=== PATIENT | female | born 1995 | race Hispanic/Latino ===

== ENCOUNTER 2019-03-07 07:17 | Emergency (ER) | payer SELFPAY ==
--- OUTSIDE RECORDS SUMMARY | 2019-03-07 07:18 | XMS REPORT ---
:1995 [facility] Address [address] [place] [address] Dr. Aaron [address] [place] [id number] Care Team Providers Name Role Phone Unavailable Unavailable Unavailable Problems This patient has no known problems. Allergies, Adverse Reactions, Alerts This patient has no known allergies or adverse reactions. Medications This patient has no known medications.
[2019-03-07 08:05] LABS: Absolute Lymphocytes (CBC) 1.6 K/uL (0.7-4.9); Basophils % 0.2 % (0-1.3); Hematocrit 38.1 % (36.0-45.0); Lymphocytes % 10.4 % (15.3-44.8); MPV 9.3 fL (7.6-11.3); RBC Red Blood Cell Count 4.79 M/uL (3.86-4.86)
[2019-03-07 08:09] LABS: BUN Blood Urea Nitrogen 9 mg/dL (7-18); Bicarbonate 25 mmol/L (21-32); Glucose Level 103 mg/dL (74-106); Potassium 3.5 mmol/L (3.5-5.1); Sodium Level 140 mmol/L (136-145)
[2019-03-07 09:17] LABS: Blood Morphology Comment NOT SEEN (NOT SEEN); Platelet Estimate ADEQ
[2019-03-07 09:18] LABS: Urine Blood 3+ (NEG); Urine Glucose NEGATIVE (NEG); Urine Protein 3+ (NEG); Urine Specific Gravity 1.025 (1.005-1.030)
[2019-03-07 09:24] LABS: Urine Bacteria <20 /HPF (<20); Urine Culture Reflex Order NOT NEEDED; Urine RBC TNTC /HPF (NONE SEEN)
--- NOTE | 2019-03-07 10:11 | ER ---
Nurse's Notes [facility] Name: Sugey Morrissey Age: 23 yrs Sex: Female : 1995 Arrival Date: 03/07/2019 Time: 07:25 Bed 18 Private MD: None, None Diagnosis: Spontaneous Presentation: 03/07 07:34 Presenting complaint: Patient states: "I had a miscarriage on Tuesday at 1930, and ss I've just been bleeding a lot since then and having pain. It did get better, but now I'm bleeding a lot again." Patient reports she was seen in another ER after miscarriage, but was told there was not much they could do. Patient is concerned that she is retaining products of conception. Transition of care: patient was not received from another setting of care. Onset of symptoms was March 03, 2019. Risk Assessment: Do you want to hurt yourself or someone else? Patient reports no desire to harm self or others. Initial Sepsis Screen: Does the patient meet any 2 criteria? No. Patient's initial sepsis screen is negative. Does the patient have a suspected source of infection? No. Patient's initial sepsis screen is negative. Note Patient reports she expelled the fetus 4 days ago. Care prior to arrival: None. 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 - Social history:: Smoking status: Patient/guardian denies using tobacco. - Family history:: not pertinent. - Ebola Screening: : Patient denies exposure to infectious person Patient denies travel to an Ebola-affected area in the 21 days before illness onset. - Hospitalizations: : No recent hospitalization is reported. Screenin:53 Abuse screen: Denies threats or abuse. Denies injuries from another. Nutritional jl7 screening: No deficits noted. Tuberculosis screening: No symptoms or risk factors identified. Fall Risk Total Hernandez Fall Scale indicates No Risk (0-24 pts). Assessment: 07:53 General: Appears in no apparent distress. uncomfortable, Behavior is cooperative, jl7 appropriate for age, anxious, crying. Pain: Complains of pain in suprapubic area Pain does not radiate. Pain currently is 8 out of 10 on a pain scale. Quality of pain is described as crampy, Pain began 2-3 days ago. Is intermittent. Neuro: Level of Consciousness is awake, alert, obeys commands. Cardiovascular: Patient's skin is warm and dry. Respiratory: Airway is patent Respiratory effort is even, unlabored, Respiratory pattern is regular, symmetrical. GI: Bowel sounds present X 4 quads. Abd is soft and non tender X 4 quads. : No signs and/or symptoms were reported regarding the genitourinary system. EENT: No signs and/or symptoms were reported regarding the EENT system. Derm: Skin is pink, warm \\T\\ dry. Musculoskeletal: No signs and/or symptoms reported regarding the musculoskeletal system. 09:03 Reassessment: Patient appears in no apparent distress at this time. Patient and/or jl7 family updated on plan of care and expected duration. Pain level reassessed. Patient is alert, oriented x 3, equal unlabored respirations, skin warm/dry/pink. Patient states feeling better. 10:00 Reassessment: Patient appears in no apparent distress at this time. No changes from jl7 previously documented assessment. Patient and/or family updated on plan of care and expected duration. Pain level reassessed. Patient is alert, oriented x 3, equal unlabored respirations, skin warm/dry/pink. Vital Signs: 07:37 BP 134 / 78; Pulse 87; Resp 16; Temp 98.4(TE); Pulse Ox 98% on R/A; Weight 97.52 kg; ss Height 5 ft. 6 in. (167.64 cm); Pain 8/10; 10:03 BP 122 / 65; Pulse 72; Resp 16; Temp 99.5; Pulse Ox 100% on R/A; Pain 0/10; em1 07:37 Body Mass Index 34.70 (97.52 kg, 167.64 cm) ED Course: 07:21 Rex Willams MD is Attending Physician. rn 07:22 Florencia Clark RN is Primary Nurse. jl7 07:25 Patient arrived in ED. mr 07:25 None, None is Private Physician. mr 07:36 Triage completed. ss 07:37 Arm band placed on right wrist. ss 07:53 Patient has correct armband on for positive identification. Placed in gown. Bed in low jl7 position. Call light in reach. Side rails up X 1. Pulse ox on. NIBP on. Warm blanket given. 07:53 Initial lab(s) drawn, by me, sent to lab. Inserted saline lock: 20 gauge in right jl7 antecubital area, using aseptic technique. Blood collected. 10:24 No provider procedures requiring assistance completed. IV discontinued, intact, jl7 bleeding controlled, No redness/swelling at site. Pressure dressing applied. Administered Medications: No medications were administered Outcome: 10:05 Discharge ordered by . rn 10:24 Discharged to home ambulatory, with family. jl7 10:24 Condition: stable 10:24 Discharge instructions given to patient, family, Instructed on discharge instructions, follow up and referral plans. Demonstrated understanding of instructions, follow-up care. 10:24 Patient left the ED. jl7 Signatures: Corina Cerna Roman, MD MD rn Martinez, Eric em1 Nancy Gross RN RN Florencia Cruz RN RN [email or web address]
--- NOTE | 2019-03-07 10:12 | EDPHYS ---
Physician Documentation [facility] Name: Sugey Morrissey Age: 23 yrs Sex: Female : 1995 Arrival Date: 03/07/2019 Time: 07:25 Bed 18 Private MD: None, None ED Physician Rex Willams HPI: 03/07 07:32 This 23 yrs old Female presents to ER via Unassigned with complaints of rn Abdominal Pain. 07:32 The patient presents with abdominal pain in the lower abdomen. Onset: The rn symptoms/episode began/occurred 4 day(s) ago. The symptoms do not radiate. Associated signs and symptoms: Pertinent positives: vaginal bleeding. Modifying factors: The symptoms are alleviated by nothing, the symptoms are aggravated by touching the area. Severity of pain: At its worst the pain was moderate in the emergency department the pain has improved. The patient has not experienced similar symptoms in the past. Reports had miscarriage on Tuesday, states passed fetus, was bleeding, went to other ER, told had miscarriage, bleeding improved, was feeling mild cramps, now bleeding again and worse lower abd cramping. Is on pain meds and abx for UTI.. 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 - Social history:: Smoking status: Patient/guardian denies using tobacco. - Family history:: not pertinent. - Ebola Screening: : Patient denies exposure to infectious person Patient denies travel to an Ebola-affected area in the 21 days before illness onset. - Hospitalizations: : No recent hospitalization is reported. ROS: 07:34 Constitutional: Negative for fever, chills, and weight loss, Cardiovascular: Negative rn for chest pain, palpitations, and edema, Respiratory: Negative for shortness of breath, cough, wheezing, and pleuritic chest pain, Abdomen/GI: + lower abd pain and cramping Back: Negative for injury and pain, : + vaginal bleeding MS/Extremity: Negative for injury and deformity, Skin: Negative for injury, rash, and discoloration, Neuro: Negative for headache, weakness, numbness, tingling, and seizure. Exam: 07:34 Constitutional: This is a well developed, well nourished patient who is awake, alert, rn appears anxious Abdomen/GI: soft, mild suprapubic tenderness, no rebound Neuro: Awake and alert, GCS 15, oriented to person, place, time, and situation. Cranial nerves II-XII grossly intact. Motor strength 5/5 in all extremities. Sensory grossly intact. Cerebellar exam normal. Normal gait. Vital Signs: 07:37 BP 134 / 78; Pulse 87; Resp 16; Temp 98.4(TE); Pulse Ox 98% on R/A; Weight 97.52 kg; ss Height 5 ft. 6 in. (167.64 cm); Pain 8/10; 10:03 BP 122 / 65; Pulse 72; Resp 16; Temp 99.5; Pulse Ox 100% on R/A; Pain 0/10; em1 07:37 Body Mass Index 34.70 (97.52 kg, 167.64 cm) ss MDM: 07:21 Patient medically screened. rn 07:39 ED course: Pt seen in 2016 for trauma, blood type is O+. rn 08:08 ED course: Spoke with patient regarding possible cytotec to help with , patient rn declines, is concerned that may worsen abd pain.. 08:12 ED course: Pt states now pain is gone, states comes in waves. . rn 10:04 Differential diagnosis: Ectopic , spont . Data reviewed: vital signs, rn nurses notes, lab test result(s), radiologic studies, ultrasound, and as a result, I will discharge patient. Counseling: I had a detailed discussion with the patient and/or guardian regarding: the historical points, exam findings, and any diagnostic results supporting the discharge/admit diagnosis, lab results, radiology results, the need for outpatient follow up, to return to the emergency department if symptoms worsen or persist or if there are any questions or concerns that arise at home. Special discussion: I discussed with the patient/guardian in detail that at this point there is no indication for admission to the hospital. It is understood, however, that if the symptoms persist or worsen the patient needs to return immediately for re-evaluation. Based on the history and exam findings, there is no indication for further emergent testing or inpatient evaluation. I discussed with the patient/guardian the need to see the OB Gyne specialist for further evaluation of the symptoms. ED course: Pt pain free, bleeding improved, u/s shows clear adnexa and thin endometrium, no retained products, will dc home with expectant management.. 03/07 07:32 Order name: CBC with Diff; Complete Time: 09:34 rn 03/07 07:32 Order name: Basic Metabolic Panel; Complete Time: 08:37 rn 03/07 07:53 Order name: HCG-Quantitative; Complete Time: 08:37 rn 03/07 08:59 Order name: Urine Microscopic Only; Complete Time: 09:34 rn 03/07 09:03 Order name: Urine Dipstick--Ancillary (enter results); Complete Time: 09:34 bd 03/07 09:03 Order name: Urine --Ancillary (enter results); Complete Time: 09:34 bd 03/07 07:32 Order name: IV Start; Complete Time: 07:51 rn 03/07 08:15 Order name: Pelvis Complete EDMS 03/07 08:59 Order name: Urine Dipstick-Ancillary (obtain specimen); Complete Time: 09:03 rn 03/07 09:23 Order name: Manual Differential; Complete Time: 09:34 EDMS Administered Medications: No medications were administered Disposition: 03/07/19 10:05 Discharged to Home. Impression: Spontaneous . - Condition is Stable. - Discharge Instructions: Miscarriage. - Medication Reconciliation Form, Thank You Letter, Antibiotic Education, Prescription Opioid Use, Family Work Release form. - Follow up: Private Physician; When: As needed; Reason: Recheck today's complaints, Re-evaluation by your physician. - Problem is new. - Symptoms have improved. Signatures: Dispatcher [employer] EDAK Rex Willams MD MD rn Smirch, Shelby, RN RN ss Leal, Jahala, RN RN jl7 Corrections: (The following items were deleted from the chart) 08:15 07:32 OB Limited+US.RAD.BRZ ordered. EDAK EDAK 10:24 10:05 03/07/2019 10:05 Discharged to Home. Impression: Spontaneous . Condition jl7 is Stable. Forms are Medication Reconciliation Form, Thank You Letter, Antibiotic Education, Prescription Opioid Use. Follow up: Private Physician; When: As needed; Reason: Recheck today's complaints, Re-evaluation by your physician. Problem is new. Symptoms have improved. rn
--- NOTE | 2019-03-07 10:52 | RAD REPORT ---
EXAM DESCRIPTION: US - Pelvis Complete - 03/07/2019 9:50 am CLINICAL HISTORY: s/p tuesday, eval for retained products;Abd pain Pelvic pain. COMPARISON: No comparisons FINDINGS: The uterus is normal in size, shape and echotexture. The uterus measures 9.1 x 6.0 x 4.9 c m. The endometrial stripe measures 9 mm, normal. Both ovaries are normal in size, shape and echotexture. The right ovary measures 2.5 x 1.4 x 1.3 cm. The left ovary measures 2.9 x 2.4 x 2.1 cm. No ovarian or parovarian lesions. No adnexal masses. Normal Doppler blood flow was demonstrated to both ovaries. No significant pelvic ascites. IMPRESSION: Unremarkable study.
== END 2019-03-07 10:24 | disposition home or self-care (01) ==
LOC: ER 07:17
DX: O03.9 Complete or unspecified spontaneous abortion without complication (principal)
CPT/HCPCS: 36415; 76856; 80048; 81003; 81015; 81025; 84702; 85025

== ENCOUNTER 2022-02-15 23:08 | Emergency (ER) | payer SELFPAY ==
[2022-02-16 01:33] LABS: Urine Blood Negative (Negative); Urine Glucose Negative (Negative); Urine Protein Negative (Negative); Urine Specific Gravity >=1.030 (1.005-1.030)
[2022-02-16 02:03] LABS: Absolute Lymphocytes (CBC) 3.3 K/uL (0.7-4.9); Hematocrit 37.6 % (36.0-45.0); Lymphocytes % 27.3 % (15.3-44.8); MCV 81.7 fL (80-100)
[2022-02-16 02:05] LABS: Albumin 3.5 g/dL (3.4-5.0); Bilirubin Total 0.4 mg/dL (0.2-1.0); Potassium 3.5 mmol/L (3.5-5.1); Protein, Total 7.1 g/dL (6.4-8.2)
[2022-02-16] MEDS ORDERED: NA CHLORIDE 0.9% 1,000 ML ONE (02:36)
--- NOTE | 2022-02-16 03:34 | EDPHYS ---
Physician Documentation [facility] Name: Sugey Morrissey Age: 26 yrs Sex: Female : 1995 Arrival Date: 02/15/2022 Time: 23:12 Bed 16 Private MD: ED Physician Yusuf Guallpa HPI: 02/16 03:29 This 26 yrs old Female presents to ER via Ambulatory with complaints of [facility] Abdominal Cramping. 03:29 The patient presents to the emergency department with abdominal pain. The estimated [facility] gestational age is 6 weeks. course: care: none. Previous pregnancies: in previous pregnancies patient has had. Associated signs and symptoms: The patient has no apparent associated signs or symptoms. The patient has not experienced similar symptoms in the past. 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 - Social history:: Smoking status: Patient denies any tobacco usage or history of. ROS: 03:30 Constitutional: Negative for fever, chills, and weight loss, Eyes: Negative for injury, eleazar pain, redness, and discharge, ENT: Negative for injury, pain, and discharge, Neck: Negative for injury, pain, and swelling, Cardiovascular: Negative for chest pain, palpitations, and edema, Respiratory: Negative for shortness of breath, cough, wheezing, and pleuritic chest pain, Abdomen/GI: Negative for abdominal pain, nausea, vomiting, diarrhea, and constipation, Back: Negative for injury and pain, : Negative for injury, bleeding, discharge, and swelling, MS/Extremity: Negative for injury and deformity, Skin: Negative for injury, rash, and discoloration, Neuro: Negative for headache, weakness, numbness, tingling, and seizure, Psych: Negative for depression, anxiety, suicide ideation, homicidal ideation, and hallucinations, Allergy/Immunology: Negative for hives, rash, and allergies, Endocrine: Negative for neck swelling, polydipsia, polyuria, polyphagia, and marked weight changes, Hematologic/Lymphatic: Negative for swollen nodes, abnormal bleeding, and unusual bruising. Exam: 03:30 Constitutional: This is a well developed, well nourished patient who is awake, alert, eleazar and in no acute distress. Head/Face: Normocephalic, atraumatic. Eyes: Pupils equal round and reactive to light, extra-ocular motions intact. Lids and lashes normal. Conjunctiva and sclera are non-icteric and not injected. Cornea within normal limits. Periorbital areas with no swelling, redness, or edema. ENT: Nares patent. No nasal discharge, no septal abnormalities noted. Tympanic membranes are normal and external auditory canals are clear. Oropharynx with no redness, swelling, or masses, exudates, or evidence of obstruction, uvula midline. Mucous membranes moist. Neck: Trachea midline, no thyromegaly or masses palpated, and no cervical lymphadenopathy. Supple, full range of motion without nuchal rigidity, or vertebral point tenderness. No Meningismus. Chest/axilla: Normal chest wall appearance and motion. Nontender with no deformity. No lesions are appreciated. Cardiovascular: Regular rate and rhythm with a normal S1 and S2. No gallops, murmurs, or rubs. Normal PMI, no JVD. No pulse deficits. Respiratory: Lungs have equal breath sounds bilaterally, clear to auscultation and percussion. No rales, rhonchi or wheezes noted. No increased work of breathing, no retractions or nasal flaring. Abdomen/GI: Soft, non-tender, with normal bowel sounds. No distension or tympany. No guarding or rebound. No evidence of tenderness throughout. Back: No spinal tenderness. No costovertebral tenderness. Full range of motion. Skin: Warm, dry with normal turgor. Normal color with no rashes, no lesions, and no evidence of cellulitis. MS/ Extremity: Pulses equal, no cyanosis. Neurovascular intact. Full, normal range of motion. Neuro: Awake and alert, GCS 15, oriented to person, place, time, and situation. Cranial nerves II-XII grossly intact. Motor strength 5/5 in all extremities. Sensory grossly intact. Cerebellar exam normal. Normal gait. Psych: Awake, alert, with orientation to person, place and time. Behavior, mood, and affect are within normal limits. Vital Signs: 01:14 BP 123 / 82; Pulse 91; Resp 16; Temp 98.6; Pulse Ox 100% on R/A; Weight 104.78 kg; kd3 Height 5 ft. 5 in. (165.10 cm); Pain 7/10; 02:30 BP 121 / 50; Pulse 75; Resp 16; Pulse Ox 99% on R/A; jb4 04:00 BP 125 / 52; Pulse 76; Resp 18; Pulse Ox 100% on R/A; kd3 01:14 Body Mass Index 38.44 (104.78 kg, 165.10 cm) kd3 MDM: 01:59 Patient medically screened. eleazra 03:31 Data reviewed: vital signs, nurses notes, lab test result(s), radiologic studies, eleazar ultrasound. 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 02/16 01:21 Order name: CBC with Diff; Complete Time: 03:13 kd3 02/16 01:21 Order name: CMP; Complete Time: 03:13 kd3 02/16 01:21 Order name: Lipase; Complete Time: 03:13 kd3 02/16 01:34 Order name: Urine Dipstick-Ancillary; Complete Time: 01:57 EDMS 02/16 01:59 Order name: Abo/rh Typing; Complete Time: 03:13 eleazar 02/16 01:21 Order name: IV Saline Lock; Complete Time: 01:43 kd3 02/16 01:21 Order name: Labs collected and sent; Complete Time: 01:43 kd3 02/16 01:22 Order name: Urine Dipstick-Ancillary (obtain specimen); Complete Time: 01:43 kd3 02/16 01:59 Order name: US Transvaginal Ob eleazar 02/16 02:13 Order name: HCG, Quantitative; Complete Time: 03:13 EDMS 02/16 01:22 Order name: Urine Test (obtain specimen); Complete Time: 01:43 kd3 02/16 01:59 Order name: NPO; Complete Time: 02:19 eleazar Administered Medications: 02:43 Drug: NS 0.9% 1000 ml Route: IV; Rate: 1 bolus; Site: left antecubital; jb4 03:59 Follow up: IV Status: Completed infusion kd3 Disposition Summary: 02/16/22 03:33 Discharge Ordered Location: Home eleazar Problem: new eleazar Symptoms: have improved eleazar Condition: Stable eleazar Diagnosis - Less than 8 weeks gestation of eleazar - Other ovarian cysts - LEFT CORPUS LEUTUM CYST eleazar Followup: eleazar - With: Private Physician - When: 2 - 3 days - Reason: Recheck today's complaints, Continuance of care, Re-evaluation by your physician Followup: eleazar - With: Jose L Bah MD - When: 2 - 3 days - Reason: Recheck today's complaints, Re-evaluation by your physician Discharge Instructions: - Discharge Summary Sheet eleazar - Care eleazar - First Trimester of , [id number] eleazar Forms: - Medication Reconciliation Form eleazar - Thank You Letter eleazar - Antibiotic Education eleazar - Prescription Opioid Use eleazar - Work release form kd3 Signatures: Dispatcher [employer] EDYuusf Monk MD MD cha Bryson, James, RN RN jb4 Maura Kerns RN RN kd3 Corrections: (The following items were deleted from the chart) 02:13 01:59 BASIC METABOLIC PANEL+C.LAB.BRZ ordered. EDMS EDMS 02:13 01:59 QUANTITATIVE HCG+C.LAB.BRZ ordered. EDMS EDMS
--- NOTE | 2022-02-16 03:34 | ER ---
Nurse's Notes [facility] Name: Sugey Morrissey Age: 26 yrs Sex: Female : 1995 Arrival Date: 02/15/2022 Time: 23:12 Bed 16 Private MD: Diagnosis: Less than 8 weeks gestation of ;Other ovarian cysts-LEFT CORPUS LEUTUM CYST Presentation: 02/16 01:14 Chief complaint: Patient states: I've been feeling some heavy cramps. I think I might kd3 be 6 weeks . its in my lower left side. No bleeding. This is my second but my first one I had a miscarriage at 2 to 3 months. Coronavirus screen: Vaccine status: Patient reports being unvaccinated. Ebola Screen: No symptoms or risks identified at this time. Initial Sepsis Screen: Does the patient meet any 2 criteria? No. Patient's initial sepsis screen is negative. Does the patient have a suspected source of infection? No. Patient's initial sepsis screen is negative. Risk Assessment: Do you want to hurt yourself or someone else? Patient reports no desire to harm self or others. Onset of symptoms was February 16, 2022. 01:14 Method Of Arrival: Ambulatory kd3 01:14 Acuity: TOYIN 3 kd3 Triage Assessment: 01:17 General: Appears in no apparent distress. Behavior is calm, cooperative. Pain: kd3 Complains of pain in left lower quadrant. GI: Reports lower abdominal pain. 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 - Social history:: Smoking status: Patient denies any tobacco usage or history of. Screenin:18 Abuse screen: Denies threats or abuse. Denies injuries from another. Nutritional kd3 screening: No deficits noted. Tuberculosis screening: No symptoms or risk factors identified. Fall Risk None identified. Assessment: 02:00 Reassessment: Patient appears in no apparent distress at this time. Patient and/or jb4 family updated on plan of care and expected duration. Pain level reassessed. Patient is alert, oriented x 3, equal unlabored respirations, skin warm/dry/pink. see triage note. 03:02 Reassessment: Patient appears in no apparent distress at this time. Patient and/or jb4 family updated on plan of care and expected duration. Pain level reassessed. Patient is alert, oriented x 3, equal unlabored respirations, skin warm/dry/pink. 03:50 GI: Bowel sounds present X 4 quads. Abd is soft. kd3 Vital Signs: 01:14 BP 123 / 82; Pulse 91; Resp 16; Temp 98.6; Pulse Ox 100% on R/A; Weight 104.78 kg; kd3 Height 5 ft. 5 in. (165.10 cm); Pain 7/10; 02:30 BP 121 / 50; Pulse 75; Resp 16; Pulse Ox 99% on R/A; jb4 04:00 BP 125 / 52; Pulse 76; Resp 18; Pulse Ox 100% on R/A; kd3 01:14 Body Mass Index 38.44 (104.78 kg, 165.10 cm) kd3 ED Course: 02/15 23:12 Patient arrived in ED. ja2 0712 01:17 Triage completed. kd3 01:17 Arm band placed on left wrist. kd3 01:18 Patient has correct armband on for positive identification. kd3 01:42 Maura Kerns, KING is Primary Nurse. kd3 01:43 Inserted saline lock: 20 gauge in left antecubital area, using aseptic technique. Blood kd3 collected. 01:56 Yusuf Guallpa MD is Attending Physician. eleazar 02:19 Mendez De Dios, RN is Primary Nurse. jb4 02:41 US Transvaginal Ob In Process Unspecified. EDMS 03:33 Jose L Bah MD is Referral Physician. eleazar 03:50 No provider procedures requiring assistance completed. IV discontinued, intact, kd3 bleeding controlled, No redness/swelling at site. Pressure dressing applied. Administered Medications: 02:43 Drug: NS 0.9% 1000 ml Route: IV; Rate: 1 bolus; Site: left antecubital; jb4 03:59 Follow up: IV Status: Completed infusion kd3 Medication: 01:43 VIS not applicable for this client. kd3 Outcome: 03:33 Discharge ordered by . eleazar 03:50 Discharged to home ambulatory. kd3 03:50 Condition: stable 03:50 Discharge instructions given to patient, family, Instructed on discharge instructions, follow up and referral plans. Demonstrated understanding of instructions, follow-up care, medications, Prescriptions given X 04:00 Patient left the ED. kd3 Signatures: Dispatcher [employer] Yusuf Nichole MD MD cha Bryson, James, RN RN jb4 Aide Rose Kyli, RN RN kd3
[2022-02-16 04:12] VITALS: TEMP 98.6
[2022-02-16 04:16] VITALS: BP 125/52; O2SAT 100
--- NOTE | 2022-02-16 11:07 | RAD REPORT ---
EXAM DESCRIPTION: US - Transvaginal OB - 02/16/2022 2:39 am CLINICAL HISTORY: The patient is 26 years old and is Female; ABD PAIN LMP January 01, 2022 TECHNIQUE: Real-time transvaginal obstetrical ultrasound of the maternal pelvis and a first trimeste r with image documentation. Transvaginal imaging was used for better evaluation of the fe tus and adnexa. COMPARISON: No relevant prior studies available. FINDINGS: Gestation: Intrauterine gestational sac and yolk sac. No pole visualized. Mean ges tational sac diameter 1.7 cm. Placenta/amniotic fluid: Small subchorionic hemorrhage, 1.3 cm in greatest dimension. Uterus/cervix: Uterus is 9.5 x 5.7 cm. No myometrial mass. Ovaries: Left ovarian simple cyst 1.5 cm in diameter. Right ovary sought but not visualized. Left ovary 2.2 x 2.8 x 2.4 cm. Free fluid: No free fluid. IMPRESSION: 1. Early intrauterine without pole visualized. Findings are suspicious for, but not diagnostic of, failure based on the mean gestational sac diameter. EGA range is 5 weeks 1 day to 6 weeks 4 days. Serial quantitative hCGs and short-term ultrasound follow-up re commended. 2. Small subchorionic hemorrhage, 1.3 cm in greatest dimension. 3. Left ovarian simple cyst 1.5 cm in diameter. Electronically signed by: Flavia Carpio MD 02/16/2022 6:57 AM CDT Due to temporary technical issues with the PACS/Fluency reporting system, reports are being signed by the in house radiologists without review as a courtesy to insure prompt reporting. The interpreting radiologist is fully responsible for the content of the report.
--- OUTSIDE RECORDS SUMMARY | 2022-02-25 01:02 | XMS REPORT | Continuity of Care Document ---
:1995 Author Organization [facility] t Address [address] [place] [address] Care Team Providers Name Role Phone CRISTIANE MONTANA Primary Care Physician Unavailable Evaristo MONTANA Attending Clinician Unavailable Evaristo Contreras Attending Clinician Doctor Unassigned, Name Attending Clinician Unavailable Tano RN Attending Clinician Unavailable Payers Payer Name Policy Type Policy Number Effective Date Expiration Date S [facility] [place]ICA[place] PENDING PENDING 2022 00:00:00 Problems Condition Condition Condition Status Onset Resolution Last Treating Co mments Source Name Details Category Date Date Treatment Clinician Date Supervisio Supervisio Disease Active U pascualers n of n of 7-14 ity of high-risk [facility] Obesity in Obesity in Disease Active U nivers 7-14 ity of 00:00: [address] History of History of Disease Active 0 U nivers miscarriag miscarriag 7-14 it y of e e 00:00: [address] Allergies, Adverse Reactions, Alerts Allergy Allergy Status Severity Reaction(s) Onset Inactive Treating Comm ents Source Name Type Date Date Clinician NO KNOWN Drug Active Univers ALLERGIE Class ity of S [facility] Social History Social Habit Start Date Stop Date Quantity Comments Source ASSERTION 2022-01-15 University 00:00:00 [facility] Exposure to 2022-02-08 2022-02-18 Not sure [facility] SARS-CoV-2 00:00:00 15:27:00 [facility] (event) Branch Tobacco use and 2022-02-18 2022-02-18 Smokeless tobacco Un iversity of exposure 00:00:00 00:00:00 non-user [facility] Alcohol intake 2022-02-18 2022-02-18 Ex-drinker [facility] 00:00:00 00:00:00 (finding) [facility] Sex Assigned At [birth year] Universit y of 00:00:00 00:00:00 [facility] Smoking Status Start Date Stop Date Source Tobacco smoking consumption [facility] Never smoked tobacco [facility] Medications Ordered Filled Start Stop Current Ordering Indication Dosage Frequency Signature Comments Components Source Medication Medication Date Date Medication? Clinician (SIG) Name Name No known No No known Univ rs medications 02-18 medication it y of 15:39: s [address] Vital Signs Vital Name Observation Time Observation Value Comments Source Systolic blood 2022-02-18 20:20:00 125 mm[Hg] Univer sity of pressure [facility] Diastolic blood 2022-02-18 20:20:00 63 [facility] rate 2022-02-18 20:20:00 76 /min [facility] Body temperature 2022-02-18 20:20:00 36.39 Destiny [facility] Respiratory rate 2022-02-18 20:20:00 20 /min [facility] Body height 2022-02-18 20:20:00 165.1 cm [facility] Body weight 2022-02-18 20:20:00 108.041 kg [facility] BMI 2022-02-18 20:20:00 39.64 kg/m2 [facility] Procedures Procedure Date / Time Performed Performing Clinician Sourc e CBC WITH DIFF 2022-02-18 21:20:00 Cristiane Montana [facility] HEPATITIS B SURFACE 2022-02-18 21:20:00 Cristiane [facility] AG-AB WITH 2022-02-18 21:20:00 Cristiane Montana [facility] PAP SMEAR-LIQUID 2022-02-18 21:20:[address] [facility] GALV ONLY - [place] 2022-02-18 21:20:00 [facility]M [facility] HB ABO GROUPING 2022-02-18 21:00:00 Cristiane Montana Univers ity [facility] POCT TEST 2022-02-18 20:19:00 Cristiane Montana Uni versity [facility] POCT URINALYSIS W/O 2022-02-18 20:19:00 Cristiane Montana Uni versity [facility] SPECIFIC GRAVITY [facility] ASSIGNMENT OF BENEFITS 2022-02-18 19:32:24 Doctor Unassigned, No [facility] Encounters Start End Encounter Admission Attending Care Care Encounter Source Date/Time Date/Time Type Type Clinicians Facility Department ID 2022-03-18 2022-03-18 Outpatient R GERARDOPE, [facility] [id number] Univers 10:30:00 10:30:00 CRISTIANE [id number] ity o [facility] 2022-03-18 2022-03-18 Outpatient R AKINSIPE, [facility] [id number] Univers 10:30:00 10:30:00 CRISTIANE ity o [facility] 2022-02-25 2022-02-25 Outpatient R AKINSIPE, [facility] [id number] Univers 10:30:00 10:30:00 CRISTIANE ity o [facility] 2022-02-18 2022-02-18 Outpatient R AKINSIPE, [facility] [id number] Univers 15:00:00 16:27:05 CRISTIANE ity o [facility] 2022-02-18 2022-02-18 Initial Madhavi, [facility] [id number] Univers 15:00:00 16:27:05 Cristiane Loera [employer] [id number] ity of Visit [facility] [id number] Yoni as MATERNAL [phone] Med ical & CHILD [address] [place] [address] 2022-02-18 2022-02-18 Outpatient R AKINSIPE, [facility] [id number] Univers 15:00:00 15:00:00 CRISTIANE [id number] [facility] 2022-02-18 2022-02-18 Orders Doctor AMALIA [id number] Univers 00:00:00 00:00:00 Only Unassigned, RISHABH 350.1.13.10 ity of [facility] [id number] Yoni as [phone] [address] 2022-02-17 2022-02-17 Outpatient R AKINSIPE, [facility] [id number] Univers 10:00:00 10:00:00 CRISTIANE [id number] [facility] 2022-02-17 2022-02-17 Outpatient R AKINPE, [facility] [id number] Univers 10:00:00 10:00:00 CRISTIANE [facility] 2022-02-11 2022-02-11 Outpatient R AKINSIPE, [facility] [id number] Univers 15:00:00 15:00:00 CRISTIANE [id number] [facility] 2022-02-07 2022-02-07 Nurse AMALIA Freedman [id number] Univers 00:00:00 00:00:00 Triage Aneatrice RISHABH [id number] ity [facility] [id number] Yoni as [phone] [address] Results Test Description Test Time Test Comments Results Result Comments Source GALV ONLY - [place] IGG/IGM 2022-02-19 16:27:31 Test Item Value Reference Range Interpretation Comme nts Syphilis IgG/IgM (test code = Non-reactive Non-reactive 18795-5) IDANIA (test code = IDANIA) Non-reactive - No serologic evidence of T. pallidum infection. Cannot exclude incubating or early syphilis. Submit a second specimen in 2-4 weeks if syphilis is clinically suspected. Equivocal - Further testing to follow. Reactive - Further testing to follow. Lab Interpretation (test code = Normal 07867-5) [facility] WITH [id number] 07:51:45 Test Item Value Reference Range Interpretation Comments HIV Negative Negative Semi-quantitative (test code = 10537-4) IDANIA (test code = Non-reactive for HIV-1 IDANIA) antigen and HIV-1/HIV-2 antibodies. ?No laboratory evidence of HIV infection. ?Repeat in 2-4 weeks if acute HIV infection is suspected. [facility] SURFACE [id number] 07:42:26 Test Item Value Reference Range Interpretation Comments HBsAg Semi-Quantitative (test code = Negative Negative 5195-3) [facility], BLOOD [id number] 07:16:25 Test Item Value Reference Range Interpretation Comments ABO & RH (test code O POSITIVE Performe d at [facility] = 20) Laboratory Serv [facility] [address] [facility] s [address]Htzu Free: [phone] A No. [id number] IAT (test code = Negative Performed a t [facility] 1185) Laboratory Serv [facility] s [address]Y[place] Free: [phone] A No. [id number] [facility] [id number] 04:36:52 Test Item Value Reference Range Interpretation Comments WBC (test code = See_Comment H [Automated 7380-2) message] The sy stem which generated this result transmitted reference range : 4.30 - 11.10 10*3/?L. The reference range was not used to interpret this result as normal/abnormal . RBC (test code = See_Comment [Automated 487-8) message] The sy stem which generated this result transmitted reference range : 3.93 - 5.25 10*6/?L. The reference range was not used to interpret this result as normal/abnormal . HGB (test code = 13.0 g/dL 11.6-15 728-7) HCT (test code = 39.4 % 35.7-45.2 4544-3) MCV (test code = 84.2 fL 80.6-95.5 787-2) MCH (test code = 27.8 pg 25.9-32.8 785-6) MCHC (test code = 33.0 g/dL 31.6-35.1 786-4) RDW-SD (test code = 40.1 fL 39-49.9 50601-8) RDW-CV (test code = 13.1 % 12-15.5 788-0) PLT (test code = See_Comment [Automated 777-3) message] The sy stem which generated this result transmitted reference range : 166 - 358 10*3/ ?L. The reference r armando was not used to interpret this result as normal/abnormal . MPV (test code = 11.7 fL 9.5-12.9 00200-1) NRBC/100 WBC (test See_Comment [Automat ed code = [id number]) message] The system which generated this result transmitted reference range : 0.0 - 10.0 /100 WBCs. The refer ence range was not u sed to interpret th is result as normal/abnormal . NRBC x10^3 (test code See_Comment [Auto mated = [id number]) message] The s ystem which generated this result transmitted reference range : 10*3/?L. The reference range was not used to interpret this result as normal/abnormal . GRAN MAT (NEUT) % 73.2 % (test code = 770-8) IMM GRAN % (test code 0.40 % = 4502370062) LYMPH % (test code = 21.8 % 736-9) MONO % (test code = 3.7 % 5905-5) EOS % (test code = 0.7 % 713-8) BASO % (test code = 0.2 % 706-2) GRAN MAT x10^3(ANC) 8.98 10*3/uL 1.88-7.09 H (test code = 9353524445) IMM GRAN x10^3 (test 0.05 10*3/uL 0-0.06 code = 3058517884) LYMPH x10^3 (test code 2.67 10*3/uL 1.32-3.29 = 731-0) MONO x10^3 (test code 0.45 10*3/uL 0.33-0.92 = 742-7) EOS x10^3 (test code = 0.08 10*3/uL 0.03-0.39 711-2) BASO x10^3 (test code 0.01-0.07 = 704-7) Lab Interpretation Abnormal (test code = 89757-1) [facility] [id number] 20:19:00 Test Item Value Reference Range Interpretation Comments POCT PREG (test code = 1605) Negative On board controls acceptable with C Yes Line (test code = 3574) POCT PREG LOT # (test code = 3575) POCT PREG TEST DATE (test code = 3576) [facility] W/O SPECIFIC [id number] 20:19:00 Test Item Value Reference Range Interpretation Comments POCT PH U (test code = 3254) 5 mg/dl 5-8 POCT U LEUK EST (test code = Trace Negative - Negative 3263) POCT U NIT (test code = 3262) Neg Negative - Negative POCT U PROT (test code = 3259) 1+ Negative - Negative POCT U GLU (test code = 3256) Neg Negative - Negative POCT U KETONE (test code = 3258) None Negative - Negative POCT U BLD (test code = 3257) Trace Negative - Negative [facility]
== END 2022-02-16 04:00 | disposition home or self-care (01) ==
LOC: ER 23:08
DX: O34.81 Maternal care for other abnormalities of pelvic organs, first trimester (principal); N83.12 Corpus luteum cyst of left ovary; Z3A.01 Less than 8 weeks gestation of pregnancy
CPT/HCPCS: 36415; 76817; 80053; 81003; 83690; 84702; 85025; 86900; 86901; 96360; 99284; J7030

== ENCOUNTER 2022-08-14 06:24 | Emergency (ER) | payer OTHER ==
--- OUTSIDE RECORDS SUMMARY | 2022-08-14 06:29 | XMS REPORT | Continuity of Care Document ---
:1995 Author Organization [facility] t Address [address] Aaron [address] [place] [id number] Care Team Providers Name Role Phone Cristiane Contreras Primary Care Physician [phone] AMALIA HARTMAN Attending Clinician Unavailable CRISTIANE HENDRICKSON Attending Clinician Unavailable RUPAL CARBONE Attending Clinician Unavailable Risk, Fdh-Cfmda-Mo/High Attending Clinician Unavailable Rupal Cheung Attending Clinician Rupal Iverson RN Attending Clinician Unavailable JAEVD FLANAGAN Attending Clinician Unavailable Panchito TELLES, Javed Attending Clinician Unknown, Attending Attending Clinician Unavailable Cristiane Contreras Attending Clinician [phone] Doctor Unassigned, [place] Attending Clinician Unavailable Keli Grider CNM Attending Clinician Ultrasound, Ruel-Mfanna Attending Clinician Unavailable Yusuf Guy DO Attending Clinician Lab, JenniRmjason Attending Clinician Unavailable KELI GRIDER Attending Clinician Unavailable ProviderTrino Temp Attending Clinician Unavailable Dorothy Arroyo MD Attending Clinician DOROTHY ARROYO Attending Clinician Unavailable DOROTHY ARROYO Attending Clinician Unavailable Wanda Freedman RN Attending Clinician Unavailable Payers Payer Name Policy Type Policy Number Effective Date Expiration Date [facility] [id number] 2022 STAR 00:00:00 [place] OF [place] [id number] 2022 00:00:00 Problems Condition Condition Condition Status Onset Resolution Last Treating Co mments Source Name Details Category Date Date Treatment Clinician Date GDM GDM Disease Active 2021-08 Univers (gestation (gestation 2-06 it y of al al 00:00: [place] diabetes diabetes 00 Medica l mellitus) mellitus) Bran ch Abnormal Abnormal Disease Active 2021-08 Unive rs maternal maternal 123 ity of glucose glucose 00:00: [place] tolerance, tolerance, 00 Me dical antepartum antepartum Br anch ASCUS with ASCUS with Disease Active U nivers positive positive 8-05 [place] of high risk high [place] human human 00 Medical papillomav papillomav Br anch 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 U nivers n of n of 7-14 [place] of high-risk high[place] [facility] Branch Obesity in Obesity in Disease Active U nivers 7-14 ity of 00:00: [place] 00 [facility] History of History of Disease Active U nivers miscarriag miscarriag 7-14 it y of e e 00:00: [place] 00 [facility] Allergies, Adverse Reactions, Alerts Allergy Allergy Status Severity Reaction(s) Onset Inactive Treating Comm ents Source Name Type Date Date Clinician NO KNOWN Drug Active [facility] ALLERGIE Class ity of S [facility] Social History Social Habit Start Date Stop Date Quantity Comments Source ASSERTION 2022-01-15 [facility] 00:00:00 [facility] Alcohol intake 2022-08-12 2022-08-12 Ex-drinker [facility] 00:00:00 00:00:00 (finding) [facility] Exposure to 2022-07-31 2022-08-10 Not sure [facility] SARS-CoV-2 00:00:00 16:18:00 [facility] (event) Branch Tobacco use and 2022-02-18 2022-02-18 Smokeless tobacco Un iversity of exposure 00:00:00 00:00:00 non-user [facility] Sex Assigned At [birth year] Universit y of 00:00:00 00:00:00 [facility] Smoking Status Start Date Stop Date Source Never smoked tobacco [facility] Medications Ordered Filled Start Stop Current Ordering Indication Dosage Frequency Signature Comments Components Source Medication Medication Date Date Medication? Clinician (SIG) Name Name alma Yes [id number] Take 2 Univers n 250 mg 1-05 tablets ity of tablet 00:00: now then 1 [place] 00 tablet Medical daily for Branch the next 4 days fluticasone Yes [id number] 1{spray Use 1 Univers propionate 1-03 } [place] in ity o f 50 00:00: each [place] mcg/actuati 00 nostril in Me dical on nasal the Branch spray morning. fluticasone Yes [id number] 1{spray Use 1 Univers propionate 1-03 } [place] in ity o f 50 00:00: each [place] mcg/actuati 00 nostril in Me dical on nasal the Branch spray morning. fluticasone Yes [id number] 1{spray Use 1 Univers propionate 1-03 } [place] in ity o f 50 00:00: each [place] mcg/actuati 00 nostril in Me dical on nasal the Branch spray morning. Blood-Gluco 2021-08 Yes [id number] Take blood Univers se Meter 2-06 sugar 4 ity of (TRUE 00:00: times a [facility] day Medical GLUCOSE Branch METER) Kit blood sugar 2021-08 Yes [id number] Take blood Univers diagnostic 2-06 sugar 4 ity of (TRUE 00:00: times a [facility] Medical GLUCOSE Branch TEST STRIP) strip lancets 2021-08 Yes [id number] Take blood Univers gauge Misc 2-06 sugar 4 ity of 00:00: times a [place] 00 day Medical Branch Blood-Gluco 2021-08 Yes [id number] Take blood Univers se Meter 2-06 sugar 4 ity of (TRUE 00:00: times a [facility] day Medical GLUCOSE Branch METER) Kit blood sugar 2021-08 Yes [id number] Take blood Univers diagnostic 2-06 sugar 4 ity of (TRUE 00:00: times a [facility] day Medical GLUCOSE Branch TEST STRIP) strip lancets 2021-08 Yes [id number] Take blood Univers gauge Misc 2-06 sugar 4 ity of 00:00: times a [place] 00 day Medical Branch Blood-Gluco 2021-08 Yes [id number] Take blood Univers se Meter 2-06 sugar 4 ity of (TRUE 00:00: times a RIX Medical GLUCOSE Branch METER) Kit blood sugar 2021-08 Yes [id number] Take blood Univers diagnostic 2-06 sugar 4 ity of (TRUE 00:00: times a [place] Medical GLUCOSE Branch TEST STRIP) strip lancets 2021-08 Yes [id number] Take blood Univers gauge Misc 2-06 sugar 4 ity of 00:00: times a Medical Branch Blood-Gluco 2021-08 Yes [id number] Take blood Univers se Meter 2-06 sugar 4 ity of (TRUE 00:00: times a [place] Medical GLUCOSE Branch METER) Kit blood sugar 2021-08 Yes [id number] Take blood Univers diagnostic 2-06 sugar 4 ity of (TRUE 00:00: times a [place] Medical GLUCOSE Branch TEST STRIP) strip lancets 2021-08 Yes [id number] Take blood Univers gauge Misc 2-06 sugar 4 ity of 00:00: times a Medical Branch Blood-Gluco 2021-08 Yes [id number] Take blood Univers se Meter 2-06 sugar 4 ity of (TRUE 00:00: times a [place] Medical GLUCOSE Branch METER) Kit blood sugar 2021-08 Yes [id number] Take blood Univers diagnostic 2-06 sugar 4 ity of (TRUE 00:00: times a [place] Medical GLUCOSE Branch TEST STRIP) strip lancets 2021-08 Yes [id number] Take blood Univers gauge Misc 2-06 sugar 4 ity of 00:00: times a Medical Branch Blood-Gluco 2021-08 Yes [id number] Take blood Univers se Meter 2-06 sugar 4 ity of (TRUE 00:00: times a [place] Medical GLUCOSE Branch METER) Kit blood sugar 2021-08 Yes [id number] Take blood Univers diagnostic 2-06 sugar 4 ity of (TRUE 00:00: times a [place] Medical GLUCOSE Branch TEST STRIP) strip lancets 2021-08 Yes [id number] Take blood Univers gauge Misc 2-06 sugar 4 ity of 00:00: times a Medical Branch Blood-Gluco 2021-08 Yes [id number] Take blood Univers se Meter 2-06 sugar 4 ity of (TRUE 00:00: times a [facility] Medical GLUCOSE Branch METER) Kit blood sugar 2021-08 Yes [id number] Take blood Univers diagnostic 2-06 sugar 4 ity of (TRUE 00:00: times a [facility] Medical GLUCOSE Branch TEST STRIP) strip lancets 2021-08 Yes [id number] Take blood Univers gauge Misc 2-06 sugar 4 ity of 00:00: times a Medical Branch Blood-Gluco 2021-08 Yes [id number] Take blood Univers se Meter 2-06 sugar 4 ity of (TRUE 00:00: times a [facility] Medical GLUCOSE Branch METER) Kit blood sugar 2021-08 Yes [id number] Take blood Univers diagnostic 2-06 sugar 4 ity of (TRUE 00:00: times a [place] Medical GLUCOSE Branch TEST STRIP) strip lancets 2021-08 Yes [id number] Take blood Univers gauge Misc 2-06 sugar 4 ity of 00:00: times a Medical Branch Blood-Gluco 2021-08 Yes [id number] Take blood Univers se Meter 2-06 sugar 4 ity of (TRUE 00:00: times a [facility] Medical GLUCOSE Branch METER) Kit blood sugar 2021-08 Yes [id number] Take blood Univers diagnostic 2-06 sugar 4 ity of (TRUE 00:00: times a RIX Medical GLUCOSE Branch TEST STRIP) strip lancets 2021-08 Yes [id number] Take blood Univers gauge Misc 2-06 sugar 4 ity of 00:00: times a Medical Branch Blood-Gluco 2021-08 Yes [id number] Take blood Univers se Meter 2-06 sugar 4 ity of (TRUE 00:00: times a [facility] Medical GLUCOSE Branch METER) Kit blood sugar 2021-08 Yes [id number] Take blood Univers diagnostic 2-06 sugar 4 ity of (TRUE 00:00: times a [facility] Medical GLUCOSE Branch TEST STRIP) strip lancets 2021-08 Yes [id number] Take blood Univers gauge Misc 2-06 sugar 4 ity of 00:00: times a Medical Branch Blood-Gluco 2021-08 Yes [id number] Take blood Univers se Meter 2-06 sugar 4 ity of (TRUE 00:00: times a [place] RIX [facility] GLUCOSE Branch METER) Kit blood sugar 2021-08 Yes [id number] Take blood Univers diagnostic 2-06 sugar 4 ity of (TRUE 00:00: times a [place] RIX [facility] GLUCOSE [place] TEST STRIP) strip lancets 28 2021-08 Yes [id number] Take blood Univers gauge Misc 2-06 sugar 4 ity of 00:00: times a [place] [facility] No known 2021-08 No No known Unive rs medications 1-22 medication it y of 11:13: [address] No known 2021-08 No No known Unive rs medications 1-22 medication it y of 11:13: [address] No known 2021-08 No No known Unive rs medications 1-22 medication it y of 11:13: [address] No known 2021-08 No No known Unive rs medications 1-22 medication it y of 11:13: [address] No known 2021-08 No No known Unive rs medications 1-22 medication it y of 11:13: [address] No known 2021-08 No No known Unive rs medications 0-19 medication it y of 15:55: [address] No known 2021-08 No No known Unive rs medications 0-19 medication it y of 15:55: [address] No known No No known Unive rs medications 9-06 medication it y of 16:41: [address] No known No No known Unive rs medications 9-06 medication it y of 16:41: [address] No known No No known Unive rs medications 8-09 medication it y of 16:45: [address] No known No No known Unive rs medications 8-09 medication it y of 16:45: [address] Immunizations Ordered Filled Immunization Date Status Comments [facility] e Immunization Name Name TDAP 2022-07-27 Completed [facility] 00:00:00 [facility] TDAP 2022-07-27 Completed University 00:00: [facility] TDAP 2022-07-27 Completed University of 00:00:00 [facility] Branch TDAP 2022-07-27 Completed University of 00:00:00 [place] [facility] TDAP 2022-07-27 Completed University of 00:00:00 [place] [facility] TDAP 2022-07-27 Completed University of 00:00:00 [facility] Vital Signs Vital Name Observation Time Observation Value Comments Source Systolic blood 2022-08-12 21:23:00 118 mm[Hg] Univer sity of pressure [facility] Diastolic blood 2022-08-12 21:23:00 74 mm[Hg] Unive rsity of pressure [facility] Heart rate 2022-08-12 21:23:00 124 /min Universi ty of [facility] Body temperature 2022-08-12 21:14:00 35.56 Destiny Univ ersity of [facility] Respiratory rate 2022-08-12 21:14:00 17 /min Univ ersity of [facility] Body height 2022-08-12 21:14:00 165.1 cm Universi ty of [facility] Body weight 2022-08-12 21:14:00 114.987 kg Universi ty of [place] [facility] [place] BMI 2022-08-12 21:14:00 42.18 kg/m2 Universi ty of [facility] Systolic blood 2022-08-10 22:28:00 129 mm[Hg] Univer sity of pressure [facility] Diastolic blood 2022-08-10 22:28:00 76 mm[Hg] Unive rsity of pressure [facility] Heart rate 2022-08-10 22:28:00 108 /min Universi ty of [facility] Body temperature 2022-08-10 22:28:00 37.33 Destiny Univ ersity of [facility] Branch Respiratory rate 2022-08-10 22:28:00 18 /min Univ ersity of [facility] Body height 2022-08-10 22:28:00 165.1 cm Universi ty of [place] [facility] [place] Body weight 2022-08-10 22:28:00 110.859 kg Universi ty of [place] [facility] BMI 2022-08-10 22:28:00 40.67 kg/m2 Universi ty of [facility] Oxygen saturation in 2022-08-10 22:28:00 97 /min [facility] Arterial blood by [facility] Pulse oximetry Branch Systolic blood 2022-07-27 15:39:00 128 mm[Hg] Univer sity of pressure [place] [facility] Diastolic blood 2022-07-27 15:39:00 85 mm[Hg] Unive rsity of pressure [place] [facility] Heart rate 2022-07-27 15:39:00 107 /min Universi ty of [place] [facility] Body temperature 2022-07-27 15:32:00 36.5 Destiny Univ ersity of [place] [facility] Respiratory rate 2022-07-27 15:32:00 18 /min Univ ersity of [place] [facility] Body height 2022-07-27 15:32:00 165.1 cm Universi ty of [place] [facility] Body weight 2022-07-27 15:32:00 114.845 kg Universi ty of [place] [facility] BMI 2022-07-27 15:32:00 42.13 kg/m2 Universi ty of [place] [facility] Systolic blood 2022-07-14 22:12:00 119 mm[Hg] Univer sity of pressure [place] [facility] Diastolic blood 2022-07-14 22:12:00 74 mm[Hg] Unive rsity of pressure [place] [facility] Heart rate 2022-07-14 22:12:00 97 /min Universi ty of [place] [facility] Body temperature 2022-07-14 22:12:00 36.94 Destiny Univ ersity of [place] [facility] Respiratory rate 2022-07-14 22:12:00 18 /min Univ ersity of [place] [facility] Body height 2022-07-14 22:12:00 165.1 cm Universi ty of [place] [facility] Body weight 2022-07-14 22:12:00 114.902 kg Universi ty of [place] [facility] BMI 2022-07-14 22:12:00 42.15 kg/m2 Universi ty of [place] [facility] Systolic blood 2022-06-29 16:47:00 121 mm[Hg] Univer sity of pressure [place] [facility] Diastolic blood 2022-06-29 16:47:00 68 mm[Hg] Unive rsity of pressure [place] [facility] Heart rate 2022-06-29 16:47:00 83 /min Universi ty of [place] [facility] Body temperature 2022-06-29 16:47:00 36.89 Destiny Univ ersity of [place] [facility] Respiratory rate 2022-06-29 16:47:00 18 /min Univ ersity of [place] [facility] Body height 2022-06-29 16:47:00 165.1 cm Universi ty of [place] [facility] Body weight 2022-06-29 16:47:00 114.261 kg Universi ty of [place] [facility] BMI 2022-06-29 16:47:00 41.92 kg/m2 Universi ty of [place] [facility] Systolic blood 2022-05-26 20:34:00 125 mm[Hg] Univer sity of pressure [place] [facility] Diastolic blood 2022-05-26 20:34:00 64 mm[Hg] Unive rsity of pressure [place] [facility] Heart rate 2022-05-26 20:34:00 85 /min Universi ty of [place] [facility] Body temperature 2022-05-26 20:34:00 36.17 Destiny Univ ersity of [place] [facility] Respiratory rate 2022-05-26 20:34:00 18 /min Univ ersity of [place] [facility] Body height 2022-05-26 20:34:00 165.1 cm Universi ty of [place] [facility] Body weight 2022-05-26 20:34:00 111.386 kg Universi ty of [place] [facility] BMI 2022-05-26 20:34:00 40.86 kg/m2 Universi ty of [place] [facility] Systolic blood 2022-04-13 20:51:00 127 mm[Hg] Univer sity of pressure [place] [facility] Diastolic blood 2022-04-13 20:51:00 76 mm[Hg] Unive rsity of pressure [place] [facility] Heart rate 2022-04-13 20:51:00 96 /min Universi ty of [place] [facility] Body temperature 2022-04-13 20:51:00 35.78 Destiny Univ ersity of [place] [facility] Respiratory rate 2022-04-13 20:51:00 18 /min Univ ersity of [place] [facility] Body weight 2022-04-13 20:51:00 107.865 kg Universi ty of [place] [facility] BMI 2022-04-13 20:51:00 39.57 kg/m2 Universi ty of [place] [facility] Procedures Procedure Date / Time Performed Performing Clinician Sourc e TDAP VACCINE, >11 YRS, 2022-07-27 16:00:52 Cristiane Hendrickson [facility] POCT URINALYSIS 2022-07-27 15:33:00 Cristiane Hendrickson [facility] DIABETES TESTING 2022-07-27 06:01:00 Doctor Unassigned, No Unive [facility] REPORTS [facility] POCT URINALYSIS 2022-07-14 22:13:00 Cristiane Hendrickson [facility] GLUCOSE 1 HOUR POST 2022-06-29 17:47:00 Keli Grider [facility] CBC WITH DIFF 2022-06-29 17:47:00 Keli Grider [facility] POCT URINALYSIS 2022-06-29 00:00:00 Cristiane Hendrickson [facility] POCT URINALYSIS 2022-05-26 20:36:00 Cristiane Hendrickson [facility] POCT URINALYSIS 2022-04-13 20:52:00 Cristiane Hendrickson [facility] Encounters Start End Encounter Admission Attending Care Care Encounter Source Date/Time Date/Time Type Type Clinicians Facility Department ID 2022-08-19 2022-08-19 Outpatient R MADHAVI [facility] [id number] Univers 15:45:00 15:45:00 CRISTIANE montenegro o f [facility] 2022-08-12 2022-08-12 Outpatient R TONA [facility] [id number] Univers 14:45:00 15:34:12 RUPAL montenegro [facility] 2022-08-12 2022-08-12 Routine Risk, Zhn-Zastt-Nq/High [facility] 1. 2.840.114 [id number] Univers 14:45:00 15:34:12 Rupal Carbone HOTEL CONTROLLER 350.1.13.10 ity of Visit [facility] 4.2.7.2.686 Yoni as MATERNAL [id number] Med ical & CHILD [address] [place] [address] 2022-08-11 2022-08-11 AMALIA Whitehead 1.2.840.114 [id number] Univers 00:00:00 00:00:00 (Out) Rupal SANTAMARIAY 350.1.13.10 it y of HOSPITAL 4.2.7.2.686 Yoni as [id number] [facility] [address] [place] 2022-08-10 2022-08-10 Outpatient R PANCHITO [facility] [id number] Univers 16:00:00 16:45:04 JAVED ity of [facility] 2022-08-10 2022-08-10 Urgent Javed Flanagan [facility] 1.2.840.114 [id number] Univers 16:00:00 16:20:00 Care Unknown, Attending [facility] 350.1.13.10 ity of [place] 4.2.7.2.686 Yoni as THOMAS?BLEA [id number] Ma genie MCINTYRE [address] [place] [address] MEDICAL OFFICE BUILDING 2022-08-10 2022-08-10 Telephone [facility] 1.2.840.114 [id number] Univers 00:00:00 00:00:00 Cristiane Loera HOTEL CONTROLLER 350.1.13.10 ity of [facility] 4.2.7.2.686 Yoni as MATERNAL [id number] Med ical & CHILD [address] [place] [address] 2022-07-27 2022-07-27 [facility] [id number] Univers 09:00:00 10:17:11 CRISTIANE agarwaly o f [facility] 2022-07-27 2022-07-27 Routine [facility] 1.2.471.785 [id number] Univers 09:00:00 10:17:11 Cristiane C HOTEL CONTROLLER 350.1.13.10 ity of Visit [facility] 4.2.7.2.686 Yoni as MATERNAL [id number] Med ical & CHILD [address] [place] [address] 2022-07-27 2022-07-27 Orders Doctor HOLLAND 1.2.840.114 [id number] Univers 00:00:00 00:00:00 Only Unassigned, RISHABH 350.1.13.10 ity of [place] [facility] 4.2.7.2.686 Yoni as [id number] [facility] [address] [place] 2022-07-20 2022-07-20 Walter Grider NEMB 1.2.840.114 [id number] Univers 00:00:00 00:00:00 Management Keli A HOTEL CONTROLLER 350.1.13.10 ity of REGIONAL 4.2.7.2.686 Yoni as MATERNAL [id number] [facility] ical & CHILD [address] [place] [address] 2022-07-14 2022-07-14 Outpatient R MATTHIASOLESYA, [facility] [id number] Univers 15:45:00 16:49:29 CRISTIANE ity o f [facility] 2022-07-14 2022-07-14 Routine [facility], [facility] 1.2.601.628 [id number] Univers 15:45:00 16:49:29 Cristiane C HOTEL CONTROLLER 350.1.13.10 ity of Visit REGIONAL 4.2.7.2.686 Yoni as MATERNAL [id number] [facility] & CHILD [address] [place] [address] 2022-07-14 2022-07-14 Screen Printing Machine Operator Helper [facility]tras[facility] 1.2 .840.114 [id number] [facility] 15:00:00 15:30:00 Visit Yusuf Guy HOTEL CONTROLLER 350.1.13.10 ity of REGIONAL 4.2.7.2.686 Yoni as MATERNAL [id number] [facility] ical & CHILD [address] [facility] 2022-07-13 2022-07-13 Case [facility] 1.2.840.114 [id number] Univers 00:00:00 00:00:00 Management Keli A HOTEL CONTROLLER 350.1.13.10 ity of REGIONAL 4.2.7.2.686 Yoni as MATERNAL [id number] [facility] ical & CHILD [address] [place] [address] 2022-07-13 2022-07-13 Telephone Angeline [facility] 1.2.840.114 [id number] Univers 00:00:00 00:00:00 Keli A HOTEL CONTROLLER 350.1.13.10 i ty of REGIONAL 4.2.7.2.686 Yoni as MATERNAL [id number] Med ical & CHILD [address] [place] [address] 2022-07-12 2022-07-12 Screen Printing Machine Operator Helper Lab, JenniRmchp [facility] 1.2.840. 114 [id number] Univers 08:15:00 08:55:21 Visit Cristiane Hendrickson HOTEL CONTROLLER 350.1.13. 10 ity of REGIONAL 4.2.7.2.686 Yoni as MATERNAL [id number] [facility] [address] [place] [address] 2022-07-12 2022-07-12 Outpatient R MADHAVI [facility] [id number] Univers 08:15:00 08:15:00 CRISTIANE montenegro o f [facility] 2022-07-09 2022-07-09 Telephone [facility] 1.2.840.114 [id number] Univers 00:00:00 00:00:00 Cristiane Loera HOTEL CONTROLLER 350.1.13.10 ity of REGIONAL 4.2.7.2.686 Yoni as MATERNAL [id number] [facility] & CHILD [address] [place] [address] 2022-06-30 2022-06-30 Case [facility] 1.2.840.114 [id number] Univers 00:00:00 00:00:00 Management Keli Finley HOTEL CONTROLLER 350.1.13.10 ity of REGIONAL 4.2.7.2.686 Yoni as MATERNAL [id number] [address] 2022-06-29 2022-06-29 Outpatient Gabriela GRIDER [facility] [id number] Univers 10:30:00 11:23:20 KELI montenegro [facility] 2022-06-29 2022-06-29 Routine Provider, JenniRmchp [facility] 1 .2.840.114 [id number] Univers 10:30:00 11:23:20 Keli Grider HOTEL CONTROLLER 350.1.13. 10 ity of Visit REGIONAL 4.2.7.2.686 Yoni as MATERNAL [id number] [facility] & CHILD [address] [place] [address] 2022-06-23 2022-06-23 Outpatient Gabriela GRIDER [facility] [id number] Univers 15:30:00 15:30:00 [facility] 2022-05-28 2022-05-28 Abstract Akinsipe, [facility] 1.2.840.114 [id number] Univers 00:00:00 00:00:00 Cristiane C HOTEL CONTROLLER 350.1.13.10 ity of REGIONAL 4.2.7.2.686 Yoni as MATERNAL [id number] [facility] [address] [place] [address] 2022-05-26 2022-05-26 Routine Akinsipe, [facility] 1.2.672.302 [id number] Univers 15:30:00 15:45:00 Cristiane C HOTEL CONTROLLER 350.1.13.10 ity of Visit REGIONAL 4.2.7.2.686 Yoni as MATERNAL [id number] [facility] & CHILD [address] [place] [address] 2022-05-26 2022-05-26 Screen Printing Machine Operator Helper Ultrasound, Ruel[facility] 1.2 .840.114 [id number] Univers 14:00:00 15:15:00 Visit Dorothy Arroyo HOTEL CONTROLLER 350.1.13.10 ity of REGIONAL 4.2.7.2.686 Yoni as MATERNAL [id number] [facility] [address] [facility] 2022-05-26 2022-05-26 Outpatient P DOROTHY ARROYO [facility] [id number] Univers 14:00:00 15:05:37 DOROTHY ARROYO [facility] 2022-05-12 2022-05-12 Outpatient R AKINSIPE, [facility] [id number] Univers 16:00:00 16:00:00 CRISTIANE ity o f [facility] 2022-05-11 2022-05-11 Outpatient R AKINSIPE, [facility] [id number] Univers 15:30:00 15:30:00 CRISTIANE ity o f [facility] 2022-04-13 2022-04-13 Outpatient R AKINSIPE, [facility] [id number] Univers 15:30:00 16:24:09 CRISTIANE ity o f [facility] 2022-04-13 2022-04-13 Routine Akinpe, [facility] 1.2.341.536 [id number] Univers 15:30:00 16:24:09 Cristiane C HOTEL CONTROLLER 350.1.13.10 ity of Visit REGIONAL 4.2.7.2.686 Yoni as MATERNAL [id number] [facility] & [address] 2022-04-08 2022-04-08 Outpatient P [facility] [id number] Univers 11:15:00 11:15:00 ity of [facility] 2022-03-19 2022-03-19 Telephone [facility] [id number] Univers 00:00:00 00:00:00 Cristiane C HOTEL CONTROLLER 350.1.13.10 ity of REGIONAL 4.2.7.2.686 Yoni as MATERNAL [id number] [address] 2022-03-18 2022-03-18 Outpatient R AKINSIPE, [facility] [id number] Univers 10:30:00 10:30:00 CRISTIANE ity o [facility] 2022-03-18 2022-03-18 Outpatient R AKINSIPE, [facility] [id number] Univers 10:30:00 10:30:00 CRISTIANE ity o [facility] 2022-03-16 2022-03-16 Outpatient O AKINSIPE, [facility] [id number] Univers 15:30:00 16:17:22 CRISTIANE ity o [facility] 2022-03-16 2022-03-16 Routine [facility], [facility] [id number] Univers 15:30:00 16:17:22 Cristiane C HOTEL CONTROLLER 350.1.13.10 ity of Visit REGIONAL 4.2.7.2.686 Yoni as MATERNAL [id number] [facility] & [address] 2022-03-12 2022-03-12 [facility] 1.2.840.114 [id number] Univers 00:00:00 00:00:00 Cristiane C HOTEL CONTROLLER 350.1.13.10 ity of REGIONAL 4.2.7.2.686 Yoni as MATERNAL [id number] [facility] CHILD [address] [place] [address] 2022-02-26 2022-02-26 Outpatient R MADHAVI [facility] [id number] Univers 13:30:00 13:50:04 CRISTIANE montenegro o [facility] 2022-02-26 2022-02-26 [employer] [facility], [facility] 1.2.840. 114 [id number] Univers 13:30:00 13:50:04 Visit Cristiane Hendrickson HOTEL CONTROLLER 350.1.13. 10 ity of REGIONAL 4.2.7.2.686 Yoni as MATERNAL [id number] [facility] & CHILD [address] [place] [address] 2022-02-25 2022-02-25 Outpatient R MADHAVI, [facility] [id number] Univers 10:30:00 10:30:00 CRISTIANE ramos [facility] 2022-02-18 2022-02-18 Initial [facility] [id number] Univers 15:00:00 16:27:05 Cristiane Loera HOTEL CONTROLLER 350.1.13.10 ity of Visit REGIONAL 4.2.7.2.686 Yoni as MATERNAL [id number] [address] 2022-02-18 2022-02-18 Outpatient R MADHAVI, [facility] [id number] Univers 15:00:00 16:27:05 CRISTIANE ramos [facility] 2022-02-18 2022-02-18 Outpatient R MADHAVI, [facility] [id number] Univers 14:30:00 15:35:33 CRISTIANE montenegro o [facility] 2022-02-18 2022-02-18 Orders Doctor AMALIA 1.2.840.114 [id number] Univers 00:00:00 00:00:00 Only Unassigned, RISHABH 350.1.13.10 ity of [place] [facility] 4.2.7.2.686 Yoni as [id number] [address] 2022-02-17 2022-02-17 [facility] [id number] [facility] 10:00:00 10:00:00 CRISTIANE montenegro o f [facility] 2022-02-07 2022-02-07 Nurse AMALIA Freedman 1.2.840.114 [id number] 00:00:00 00:00:00 Triage Wanda KEATING 350.1.13.10 ity [facility] 4.2.7.2.686 Yoni as [id number] [address] Results Test Description Test Time Test Comments Results Result Comments Source POCT URINALYSIS W SPECIFIC GRAVITY 2022-07-27 15:36:00 Test Item Value Reference Range Interpretation Comme nts POCT U SP GRAV (test code = 3255) . 1.005-1.025 POCT PH U (test code = 3254) . 5-8 POCT U LEUK EST (test code = 3263) . Negative - Negative POCT U NIT (test code = 3262) . Negative - Negative POCT U PROT (test code = 3259) Neg Negative - Negative POCT U GLU (test code = 3256) 1+ Negative - Negative POCT U KETONE (test code = 3258) . Negative - Negative POCT U UROBILI (test code = 3260) . 0.2-1 POCT U BILI (test code = 3261) . Negative - Negative POCT U BLD (test code = 3257) . Negative - Negative POCT U COLOR (test code = 3266) POCT U APPEAR (test code = 3267) [facility] [id number] 22:13:00 Test Item Value Reference Range Interpretation Comments POCT U SP GRAV (test code = 3255) . 1.005-1.025 POCT PH U (test code = 3254) . 5-8 POCT U LEUK EST (test code = 3263) . Negative - Negative POCT U NIT (test code = 3262) . Negative - Negative POCT U PROT (test code = 3259) Trace Negative - Negative POCT U GLU (test code = 3256) 1+ Negative - Negative POCT U KETONE (test code = 3258) . Negative - Negative POCT U UROBILI (test code = 3260) . 0.2-1 POCT U BILI (test code = 3261) . Negative - Negative POCT U BLD (test code = 3257) . Negative - Negative POCT U COLOR (test code = 3266) POCT U APPEAR (test code = 3267) [facility] Hour [facility] [id number] 06:49:39 Test Item Value Reference Range Interpretation Comments GLUC 1 HR (test code = 2606682889) 185 mg/dL 120-170 H Lab Interpretation (test code = Abnormal 93530-5) [facility] with [id number] 06:36:41 Test Item Value Reference Range Interpretation Comments WBC (test code = See_Comment H [Automated 4290-2) message] The sy stem which generated this result transmitted reference range : 4.30 - 11.10 10*3/?L. The reference range was not used to interpret this result as normal/abnormal . RBC (test code = See_Comment [Automated 789-8) message] The sy stem which generated this result transmitted reference range : 3.93 - 5.25 10*6/?L. The reference range was not used to interpret this result as normal/abnormal . HGB (test code = 12.1 g/dL 11.6-15.0 718-7) HCT (test code = 38.0 % 35.7-45.2 4544-3) MCV (test code = 82.4 fL 80.6-95.5 787-2) MCH (test code = 26.2 pg 25.9-32.8 785-6) MCHC (test code = 31.8 g/dL 31.6-35.1 786-4) RDW-SD (test code = 40.5 fL 39.0-49.9 22663-1) RDW-CV (test code = 13.7 % 12.0-15.5 788-0) PLT (test code = See_Comment [Automated 777-3) message] The sy stem which generated this result transmitted reference range : 166 - 358 10*3/ ?L. The reference r armando was not used to interpret this result as normal/abnormal . MPV (test code = 11.5 fL 9.5-12.9 93579-1) NRBC/100 WBC (test See_Comment [Automat ed code = 7151253813) message] The system which generated this result transmitted reference range : 0.0 - 10.0 /100 WBCs. The refer ence range was not u sed to interpret th is result as normal/abnormal . NRBC x10^3 (test code See_Comment [Auto mated = [id number]) message] The s ystem which generated this result transmitted reference range : 10*3/?L. The reference range was not used to interpret this result as normal/abnormal . GRAN MAT (NEUT) % 79.6 % (test code = 770-8) IMM GRAN % (test code 0.40 % = 5857683999) LYMPH % (test code = 16.4 % 736-9) MONO % (test code = 3.0 % 5905-5) EOS % (test code = 0.3 % 713-8) BASO % (test code = 0.3 % 706-2) GRAN MAT x10^3(ANC) 9.23 10*3/uL 1.88-7.09 H (test code = 9657899810) IMM GRAN x10^3 (test 0.05 10*3/uL 0.00-0.06 code = 4608067990) LYMPH x10^3 (test code 1.90 10*3/uL 1.32-3.29 = 731-0) MONO x10^3 (test code 0.35 10*3/uL 0.33-0.92 = 742-7) EOS x10^3 (test code = 0.04 10*3/uL 0.03-0.39 711-2) BASO x10^3 (test code 0.03 10*3/uL 0.01-0.07 = 704-7) Lab Interpretation Abnormal (test code = 06037-8) [facility] SPECIFIC [id number] 16:56:00 Test Item Value Reference Range Interpretation Comments POCT U SP GRAV (test code = . 1.005-1.025 3255) POCT PH U (test code = 3254) 7 mg/dl 5-8 POCT U LEUK EST (test code = negative Negative - Negative 3263) POCT U NIT (test code = 3262) negative Negative - Negative POCT U PROT (test code = 3259) negative Negative - Negative POCT U GLU (test code = 3256) negative Negative - Negative POCT U KETONE (test code = 3258) negative Negative - Negative POCT U UROBILI (test code = . 0.2-1 3260) POCT U BILI (test code = 3261) . Negative - Negative POCT U BLD (test code = 3257) negative Negative - Negative POCT U COLOR (test code = 3266) yellow POCT U APPEAR (test code = 3267) clear [facility] URINALYSIS W SPECIFIC [id number] 16:56:00 Test Item Value Reference Range Interpretation Comments POCT U SP GRAV (test code = . 1.005-1.025 3255) POCT PH U (test code = 3254) 7 mg/dl 5-8 POCT U LEUK EST (test code = negative Negative - Negative 3263) POCT U NIT (test code = 3262) negative Negative - Negative POCT U PROT (test code = 3259) negative Negative - Negative POCT U GLU (test code = 3256) negative Negative - Negative POCT U KETONE (test code = 3258) negative Negative - Negative POCT U UROBILI (test code = . 0.2-1 3260) POCT U BILI (test code = 3261) . Negative - Negative POCT U BLD (test code = 3257) negative Negative - Negative POCT U COLOR (test code = 3266) yellow POCT U APPEAR (test code = 3267) clear [facility] URINALYSIS W SPECIFIC [id number] 20:36:00 Test Item Value Reference Range Interpretation Comments POCT U SP GRAV (test code = 3255) . 1.005-1.025 POCT PH U (test code = 3254) . 5-8 POCT U LEUK EST (test code = 3263) . Negative - Negative POCT U NIT (test code = 3262) . Negative - Negative POCT U PROT (test code = 3259) Trace Negative - Negative POCT U GLU (test code = 3256) Neg Negative - Negative POCT U KETONE (test code = 3258) . Negative - Negative POCT U UROBILI (test code = 3260) . 0.2-1 POCT U BILI (test code = 3261) . Negative - Negative POCT U BLD (test code = 3257) . Negative - Negative POCT U COLOR (test code = 3266) . POCT U APPEAR (test code = 3267) [facility] [id number] 20:55:00 Test Item Value Reference Range Interpretation Comments POCT U SP GRAV (test code = * 1.005-1.025 3255) POCT PH U (test code = 3254) * 5-8 POCT U LEUK EST (test code = * Negative - Negative 3263) POCT U NIT (test code = 3262) * Negative - Negative POCT U PROT (test code = 3259) trace Negative - Negative POCT U GLU (test code = 3256) negative Negative - Negative POCT U KETONE (test code = 3258) * Negative - Negative POCT U UROBILI (test code = * 0.2-1 3260) POCT U BILI (test code = 3261) * Negative - Negative POCT U BLD (test code = 3257) * Negative - Negative POCT U COLOR (test code = 3266) POCT U APPEAR (test code = 3267) [facility]
--- NOTE | 2022-08-14 07:43 | ER ---
Nurse's Notes [facility] Name: Sugey Morrissey Age: 26 yrs Sex: Female : 1995 Arrival Date: 08/14/2022 Time: 06:27 Bed 13 Private MD: Diagnosis: Otitis media, unspecified, right ear;37 weeks gestation of Presentation: 08/14 06:35 Chief complaint: Patient states: non-productive cough for 4 days, right ear pain of 8 pf1 that started today, with congestion for 8 days. Patient stated is approximately 37 weeks . 06:35 Method Of Arrival: Ambulatory pf1 06:35 Coronavirus screen: Client denies travel out of the [place] in the last 14 days. Client pf1 presents with at least one sign or symptom that may indicate coronavirus-19. Standard/surgical mask placed on the client. Ebola Screen: Patient negative for fever greater than or equal to 101.5 degrees Fahrenheit, and additional compatible Ebola Virus Disease symptoms. Initial Sepsis Screen: Does the patient meet any 2 criteria? No. Patient's initial sepsis screen is negative. Does the patient have a suspected source of infection? No. Patient's initial sepsis screen is negative. Risk Assessment: Do you want to hurt yourself or someone else? Patient reports no desire to harm self or others. 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 - Social history:: Smoking status: Patient/guardian denies using tobacco. - Family history:: not pertinent. - Hospitalizations: : No recent hospitalization is reported. Screenin:[facility] ED Fall Risk Assessment (Adult) History of falling in the last 3 months, pf1 including since admission No falls in past 3 months (0 pts) Confusion or Disorientation No (0 pts) Intoxicated or Sedated No (0 pts) Impaired Gait No (0 pts) Mobility Assist Device Used No (0 pt) Altered Elimination No (0 pt) Score/Fall Risk Level 0 - 2 = Low Risk Oriented to surroundings, Maintained a safe environment, Educated pt \T\ family on fall prevention, incl call for assistance when getting out of bed, Assessed \T\ reinforced patient's understanding of fall precautions, Provided non-skid footwear, Hourly rounding (assess needs \T\ fall precautionary measures) done, Used ambulatory aids as needed (educated on \T\ assisted with), Used gait belt as appropriate. Abuse screen: Denies threats or abuse. Nutritional screening: No deficits noted. Tuberculosis screening: No symptoms or risk factors identified. Assessment: 06:40 General: Appears in no apparent distress. comfortable, well groomed, well developed, pf1 Behavior is calm, cooperative, appropriate for age, quiet. 06:40 Pain: Complains of pain in right ear pain of 8. Neuro: No deficits noted. Level of pf1 Consciousness is awake, alert, obeys commands, Oriented to person, place, time, situation. Cardiovascular: No deficits noted. Capillary refill < 3 seconds. Respiratory: Reports cough that is non-productive, for 4 days Airway is patent Trachea midline Respiratory effort is even, unlabored, Respiratory pattern is regular, symmetrical. GI: No deficits noted. No signs and/or symptoms were reported involving the gastrointestinal system. Abdomen is round distended, due to . : No deficits noted. No signs and/or symptoms were reported regarding the genitourinary system. EENT: Reports nasal congestion for 8 days. Derm: No deficits noted. No signs and/or symptoms reported regarding the dermatologic system. Musculoskeletal: No deficits noted. No signs and/or symptoms reported regarding the musculoskeletal system. 07:54 Reassessment: PT DC HOME AMBULATORY. bp Vital Signs: 06:35 BP 145 / 82; Pulse 95; Resp 18; Temp 98.8(O); Pulse Ox 98% on R/A; Weight 114.76 kg; pf1 Height 5 ft. 5 in. (165.10 cm); Pain 4/10; 07:54 BP 129 / 84; Pulse 93; Resp 16; Pulse Ox 98% ; bp 06:35 Body Mass Index 42.10 (114.76 kg, 165.10 cm) pf1 ED Course: 06:27 Patient arrived in ED. jj6 06:44 Triage completed. pf1 06:46 Arm band placed on right wrist. pf1 06:49 No provider procedures requiring assistance completed. pf1 06:58 Rex Willams MD is Attending Physician. rn 06:59 Maurice Orr, RN is Primary Nurse. bp 07:54 Patient has correct armband on for positive identification. Bed in low position. Call bp light in reach. Side rails up X2. 07:54 Patient did not have IV access during this emergency room visit. bp Administered Medications: No medications were administered Medication: 07:54 VIS not applicable for this client. bp Outcome: 07:42 Discharge ordered by MD. rn 07:54 Discharged to home ambulatory. bp 07:54 Condition: stable 07:54 Discharge instructions given to patient, Instructed on discharge instructions, follow up and referral plans. medication usage, Demonstrated understanding of instructions, follow-up care, medications, Prescriptions given X 1. 07:55 Patient left the ED. bp Signatures: Rex Willams MD MD rn Maurice Orr, RN RN bp Regine Ruvalcaba jj6 Carly gregg RN RN pf1
--- NOTE | 2022-08-14 07:43 | EDPHYS ---
Physician Documentation [facility] Name: Sugey Morrissey Age: 26 yrs Sex: Female : 1995 Arrival Date: 08/14/2022 Time: 06:27 Bed 13 Private MD: ED Physician Rex Willams HPI: 08/14 07:35 This 26 yrs old Female presents to ER via Ambulatory with complaints of Ear rn Pain, Congestion. 07:35 The patient presents with pain. The complaints affect the right ear. Onset: The rn symptoms/episode began/occurred 2 day(s) ago. Modifying factors: The symptoms are alleviated by nothing, the symptoms are aggravated by nothing. Associated signs and symptoms: Pertinent positives: cough, rhinorrhea, Pertinent negatives: fever, lightheadedness, shortness of breath. Severity of symptoms: At their worst the symptoms were moderate in the emergency department the symptoms have improved. The patient has not experienced similar symptoms in the past. The patient has not recently seen a physician. Pt reports cough/congestion/sore throat for 1 week. Got worse yesterday with right ear pain, feels pressure, took OTC ear drops because tylenol not helping. Overall feeling better except for ear pain. No trauma. No drainage. Reports neg strep/flu/COVID 3 days ago. NO urinary symptoms. No leakage of fluid/cramps/vaginal bleeding.. 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 - Social history:: Smoking status: Patient/guardian denies using tobacco. - Family history:: not pertinent. - Hospitalizations: : No recent hospitalization is reported. ROS: 07:35 Constitutional: Negative for fever, chills, and weight loss, Eyes: Negative for injury, rn pain, redness, and discharge, ENT: + right ear pain Neck: Negative for injury, pain, and swelling, Cardiovascular: Negative for chest pain, palpitations, and edema, Respiratory: + cough Abdomen/GI: Negative for abdominal pain, nausea, vomiting, diarrhea, and constipation, Back: Negative for injury and pain, : Negative for injury, bleeding, discharge, and swelling, MS/Extremity: Negative for injury and deformity, Skin: Negative for injury, rash, and discoloration, Neuro: Negative for headache, weakness, numbness, tingling, and seizure. Exam: 07:35 Constitutional: This is a well developed, well nourished patient who is awake, alert, rn and in no acute distress. Head/Face: Normocephalic, atraumatic. Eyes: Pupils equal round and reactive to light, extra-ocular motions intact. Lids and lashes normal. Conjunctiva and sclera are non-icteric and not injected. Cornea within normal limits. Periorbital areas with no swelling, redness, or edema. ENT: Right ear erythema, no fluid, no perforation, no swelling of canal. Left TM and canal normal. Mild pharyngeal erythema. NO stridor. Neck: Trachea midline, no thyromegaly or masses palpated, and no cervical lymphadenopathy. Supple, full range of motion without nuchal rigidity. No Meningismus. Cardiovascular: Regular rate and rhythm. No pulse deficits. Respiratory: No increased work of breathing, no retractions or nasal flaring. Abdomen/GI: soft, non-tender Skin: Warm, dry MS/ Extremity: Pulses equal, no cyanosis. Neuro: Awake and alert, GCS 15 Vital Signs: 06:35 BP 145 / 82; Pulse 95; Resp 18; Temp 98.8(O); Pulse Ox 98% on R/A; Weight 114.76 kg; pf1 Height 5 ft. 5 in. (165.10 cm); Pain 4/10; 07:54 BP 129 / 84; Pulse 93; Resp 16; Pulse Ox 98% ; bp 06:35 Body Mass Index 42.10 (114.76 kg, 165.10 cm) pf1 MDM: 06:58 Patient medically screened. rn 07:35 Differential diagnosis: otitis media, otitis externa, acute otalgia, cerumen impaction, rn serotympanum. Data reviewed: vital signs, nurses notes, and as a result, I will discharge patient. Counseling: I had a detailed discussion with the patient and/or guardian regarding: the historical points, exam findings, and any diagnostic results supporting the discharge/admit diagnosis, the need for outpatient follow up, to return to the emergency department if symptoms worsen or persist or if there are any questions or concerns that arise at home. Special discussion: I discussed with the patient/guardian in detail that at this point there is no indication for admission to the hospital. It is understood, however, that if the symptoms persist or worsen the patient needs to return immediately for re-evaluation. ED course: Pt 37 weeks preg with worsening unilateral ear pain following URI. Afebrile. No trauma. No vaginal or urinary symptoms. Considered testing for COVID/Flu/Strep but patient states that already tested 3 days ago and was negative. Considered CXR for cough but patient denies sob and oxygen 98%. No signs of related problems. Care complicated by fact she is 37 weeks . . Administered Medications: No medications were administered Disposition Summary: 08/14/22 07:42 Discharge Ordered Location: Home rn Problem: new rn Symptoms: have worsened rn Condition: Stable rn Diagnosis - Otitis media, unspecified, right ear rn - 37 weeks gestation of rn Followup: rn - With: Private Physician - When: As needed - Reason: Recheck today's complaints, Re-evaluation by your physician Discharge Instructions: - Ear Drops, Adult rn - Otitis Media, Adult rn - Discharge Summary Sheet pf1 Forms: - Medication Reconciliation Form rn - Thank You Letter rn - SBAR form pf1 - Antibiotic turning lathe tender - Prescription Opioid Use rn - Work release form eb Prescriptions: - Cephalexin 500 mg Oral Capsule - take 1 capsule by ORAL route every 12 hours for 10 days; 20 capsule; Refills: rn 0, Product Selection Permitted Signatures: Rex Willams MD MD rn finley, Pamala, RN RN pf1 Corrections: (The following items were deleted from the chart) 07:38 07:35 Constitutional: Negative for fever, chills, and weight loss, Eyes: Negative for rn injury, pain, redness, and discharge, ENT: + right ear pain Neck: Negative for injury, pain, and swelling, Cardiovascular: Negative for chest pain, palpitations, and edema, Respiratory: + cough Abdomen/GI: Negative for abdominal pain, nausea, vomiting, diarrhea, and constipation, Back: Negative for injury and pain, MS/Extremity: Negative for injury and deformity, Skin: Negative for injury, rash, and discoloration, Neuro: Negative for headache, weakness, numbness, tingling, and seizure, rn 07:39 07:35 Constitutional: This is a well developed, well nourished patient who is awake, rn alert, and in no acute distress. rn
[2022-08-14 08:01] VITALS: TEMP 98.8; O2SAT 98
[2022-08-14 08:02] VITALS: BP 129/84
== END 2022-08-14 07:55 | disposition home or self-care (01) ==
LOC: ER 06:24
DX: O99.891 Other specified diseases and conditions complicating pregnancy (principal); H66.91 Otitis media, unspecified, right ear; Z3A.37 37 weeks gestation of pregnancy
CPT/HCPCS: 99282

== ENCOUNTER 2022-09-25 01:28 | Emergency (ER) | payer OTHER ==
--- OUTSIDE RECORDS SUMMARY | 2022-09-25 01:34 | XMS REPORT | Continuity of Care Document ---
:1995 Author Organization [facility] t Address [address] Aaron [address] [place] [id number] Care Team Providers Name Role Phone Cristiane Contreras Primary Care Physician [phone] AMALIA HARTMAN Attending Clinician Unavailable CRISTIANE HENDRICKSON Attending Clinician Unavailable IRLANDA MANJARREZ Attending Clinician Unavailable Risk, Esl-Gwday-Sm/High Attending Clinician Unavailable Irlanda Nascimento Attending Clinician Cristiane Contreras Attending Clinician [phone] Doctor Unassigned, [place] Attending Clinician Unavailable RUPAL CARBONE Attending Clinician Unavailable Rupal Cheung Attending Clinician Rupal Iverson RN Attending Clinician Unavailable JAVED FLANAGAN Attending Clinician Unavailable Javed Flanagan MD Attending Clinician Unknown, Attending Attending Clinician Unavailable Keli Grider CNM Attending Clinician Ultrasound, Ang-Mfm Attending Clinician Unavailable Yusuf Guy DO Attending Clinician Lab, Ang-Rmchp Attending Clinician Unavailable KELI GRIDER Attending Clinician Unavailable Provider, Ang-Rmchedmond Temp Attending Clinician Unavailable Dorothy Arroyo MD Attending Clinician DOROTHY ARROYO Attending Clinician Unavailable DOROTHY ARROYO Attending Clinician Unavailable Tano RN, Aneatrice Attending Clinician Unavailable Payers Payer Name Policy Type Policy Number Effective Date Expiration Date Kim mckay [facility] [id number] 2022 STAR 00:00:00 [place] [id number] 2022 00:00:00 Problems Condition Condition Condition Status Onset Resolution Last Treating Co mments Source Name Details Category Date Date Treatment Clinician Date Positive Positive Disease Active Overview: Un tim GBS test GBS test 2-10 Formattin ity of 00:00: g of this [place] 00 note Medical might be Branch different from the original. 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 U nivers n of n of 7-14 [place] of high[place]risk [place] [facility] Obesity in Obesity in Disease Active U nivers 7-14 ity of 00:00: [place] 00 [facility] Branch History of History of Disease Active U nivers miscarriag miscarriag 7-14 it y of e e 00:00: [address] Allergies, Adverse Reactions, Alerts Allergy Allergy Status Severity Reaction(s) Onset Inactive Treating Comm ents Source Name Type Date Date Clinician NO KNOWN Drug Active Univers ALLERGIE Class ity of S [facility] Social History Social Habit Start Date Stop Date Quantity Comments Source ASSERTION 2022-01-15 University 00:00:00 [facility] Alcohol intake 2022-09-23 2022-09-23 Ex-drinker [facility] 00:00:00 00:00:00 (finding) [facility] Exposure to 2022-09-11 2022-09-21 Not sure [facility] SARS-CoV-2 00:00:00 14:52:00 [facility] (event) [place] Tobacco use and 2022-02-18 2022-02-18 Smokeless tobacco Un iversity of exposure 00:00:00 00:00:00 non-user [facility] Sex Assigned At [birth year] Universit y of 00:00:00 00:00:00 [facility] Smoking Status Start Date Stop Date Source Never smoked tobacco [facility] Medications Ordered Filled Start Stop Current Ordering Indication Dosage Frequency Signature Comments Components Source Medication Medication Date Date Medication? Clinician (SIG) Name Name metFORMIN 2022- Yes [id number] 500mg Take 1 Univers 500 mg 2-02 04-04 tablet by ity of tablet 00:00: 04:59 mouth in [place] 00 :00 [facility] morning [place] and 1 tablet in the evening. Take with meals. Do all this for 60 days. metFORMIN 2022- Yes [id number] 500mg Take 1 Univers 500 mg 2-02 04-04 tablet by ity of tablet 00:00: 04:59 mouth in [place] 00 :00 [facility] and 1 tablet in the evening. Take with meals. Do all this for 60 days. metFORMIN 2022- Yes [id number] 500mg Take 1 Univers 500 mg 2-02 04-04 tablet by ity of tablet 00:00: 04:59 mouth in [place] 00 :00 [facility] morning [place] and 1 tablet in the evening. Take with meals. Do all this for 60 days. metFORMIN 2022- Yes [id number] 500mg Take 1 Univers 500 mg 2-02 04-04 tablet by ity of tablet 00:00: 04:59 mouth in [place] 00 :00 [facility] and 1 tablet in the evening. Take with meals. Do all this for 60 days. metFORMIN 2022- Yes [id number] 500mg Take 1 Univers 500 mg 2-02 04-04 tablet by ity of tablet 00:00: 04:59 mouth in [place] 00 :00 [facility] morning [place] and 1 tablet in the evening. Take with meals. Do all this for 60 days. metFORMIN 2022- Yes [id number] 500mg Take 1 Univers 500 mg 2-02 04-04 tablet by ity of tablet 00:00: 04:59 mouth in [place] 00 :[address] [facility] and 1 tablet in the evening. Take with meals. Do all this for 60 days. metFORMIN 2022- Yes [id number] 500mg Take 1 Univers 500 mg 2-02 -04 tablet by ity of tablet 00:00: 04:59 mouth in [place] 00 :[address] [facility] and 1 tablet in the evening. Take with meals. Do all this for 60 days. metFORMIN 2022- Yes [id number] 500mg Take 1 Univers 500 mg 2-09 11-04 tablet by ity of tablet 00:00: 04:59 mouth in [place] 00 :[address] [facility] and 1 tablet in the evening. Take with meals. Do all this for 60 days. metFORMIN 2022- Yes [id number] 500mg Take 1 Univers 500 mg 2-09 11- tablet by ity of tablet 00:00: 04:59 mouth in [place] 00 :[address] [facility] and 1 tablet in the evening. Take with meals. Do all this for 60 days. metFORMIN 2022- Yes [id number] 500mg Take 1 Univers 500 mg 2-09 11-04 tablet by ity of tablet 00:00: 04:59 mouth in [place] 00 :[address] [facility] and 1 tablet in the evening. Take with meals. Do all this for 60 days. metFORMIN 2022- Yes [id number] 500mg Take 1 Univers 500 mg 2-09 11- tablet by ity of tablet 00:00: 04:59 mouth in [place] 00 :[address] [facility] and 1 tablet in the evening. Take with meals. Do all this for 60 days. metFORMIN 2022- Yes [id number] 500mg Take 1 Univers 500 mg 2-09 11-04 tablet by ity of tablet 00:00: 04:59 mouth in [place] 00 :[address] [facility] and 1 tablet in the evening. Take with meals. Do all this for 60 days. PNV 67-iron 2022- Yes [id number] 1{tbl} Take 1 Univers ps-folate 2-09 10-05 tablet by ity of no.1-dha 00:00: 05:59 mouth [place] (VITAFOL 00 :00 daily for Medica l ULTRA) 29 30 days. Branch mg iron- 1 mg-200 mg Cap PNV 67-iron 3- Yes [id number] 1{tbl} Take 1 Univers ps-folate 2-02 -05 tablet by ity of no.1-dha 00:00: 05:59 mouth [place] (VITAFOL 00 :00 daily for Medica l ULTRA) 29 30 days. Branch mg iron- 1 mg-200 mg Cap PNV 67-iron 2022-0 2022- Yes [id number] 1{tbl} Take 1 Univers ps-folate 2-09 10-05 tablet by ity of no.1-dha 00:00: 05:59 mouth [place] (VITAFOL 00 :00 daily for Medica l ULTRA) 29 30 days. Branch mg iron- 1 mg-200 mg Cap PNV 67-iron 2022-0 2022- Yes [id number] 1{tbl} Take 1 Univers ps-folate 2-09 10-05 tablet by ity of no.1-dha 00:00: 05:59 mouth [place] (VITAFOL 00 :00 daily for Medica l ULTRA) 29 30 days. Branch mg iron- 1 mg-200 mg Cap PNV 67-iron 2022-0 2022- Yes [id number] 1{tbl} Take 1 Univers ps-folate 2-09 10-05 tablet by ity of no.1-dha 00:00: 05:59 mouth [place] (VITAFOL 00 :00 daily for Medica l ULTRA) 29 30 days. Branch mg iron- 1 mg-200 mg Cap PNV 67-iron 2022-0 2022- Yes [id number] 1{tbl} Take 1 Univers ps-folate 2-09 10-05 tablet by ity of no.1-dha 00:00: 05:59 mouth [place] (VITAFOL 00 :00 daily for Medica l ULTRA) 29 30 days. Branch mg iron- 1 mg-200 mg Cap PNV 67-iron 2022-0 2022- Yes [id number] 1{tbl} Take 1 Univers ps-folate 2-02 -05 tablet by ity of no.1-dha 00:00: 05:59 mouth [place] (VITAFOL 00 :00 daily for Medica l ULTRA) 29 30 days. Branch mg iron- 1 mg-200 mg Cap PNV 67-iron 2022-0 2022- Yes [id number] 1{tbl} Take 1 Univers ps-folate 2-02 -05 tablet by ity of no.1-dha 00:00: 05:59 mouth [place] (VITAFOL 00 :00 daily for Medica l ULTRA) 29 30 days. Branch mg iron- 1 mg-200 mg Cap PNV 67-iron 2022-0 2022- Yes [id number] 1{tbl} Take 1 Univers ps-folate 2-02 -05 tablet by ity of no.1-dha 00:00: 05:59 mouth [place] (VITAFOL 00 :00 daily for Medica l ULTRA) 29 30 days. Branch mg iron- 1 mg-200 mg Cap PNV 67-iron 2022-0 2022- Yes [id number] 1{tbl} Take 1 Univers ps-folate 2-02 -05 tablet by ity of no.1-dha 00:00: 05:59 mouth [place] (VITAFOL 00 :00 daily for Medica l ULTRA) 29 30 days. Branch mg iron- 1 mg-200 mg Cap PNV 67-iron 2022-0 2022- Yes [id number] 1{tbl} Take 1 Univers ps-folate 2-02 -05 tablet by ity of no.1-dha 00:00: 05:59 mouth [place] (VITAFOL 00 :00 daily for Medica l ULTRA) 29 30 days. Branch mg iron- 1 mg-200 mg Cap PNV 67-iron 2022-0 3- Yes [id number] 1{tbl} Take 1 Univers ps-folate 2-02 -05 tablet by ity of no.1-dha 00:00: 05:59 mouth [place] (VITAFOL 00 :00 daily for Medica l ULTRA) 29 30 days. Branch mg iron- 1 mg-200 mg Cap azithromyci 2023-0 Yes [id number] Take 2 Univers n 250 mg 1-05 tablets ity of tablet 00:00: now then 1 [place] 00 tablet Medical daily for Branch the next 4 days azithromyci 2023-0 Yes [id number] Take 2 Univers n 250 mg 1-05 tablets ity of tablet 00:00: now then 1 [place] 00 tablet Medical daily for Branch the next 4 days azithromyci 2023-0 Yes [id number] Take 2 Univers n 250 mg 1-05 tablets ity of tablet 00:00: now then 1 [place] 00 tablet Medical daily for Branch the next 4 days azithromyci 2023-0 Yes [id number] Take 2 Univers n 250 mg 1-05 tablets ity of tablet 00:00: now then 1 [place] 00 tablet Medical daily for Branch the next 4 days azithromyci 3-0 Yes [id number] Take 2 Univers n 250 mg 1-05 tablets ity of tablet 00:00: now then 1 00 tablet Medical daily for Branch the next 4 days azithromyci 3-0 Yes [id number] Take 2 Univers n 250 mg 1-05 tablets ity of tablet 00:00: now then 1 [place] 00 tablet Medical daily for Branch the next 4 days azithromyci 2022-0 Yes [id number] Take 2 Univers n 250 mg 1-05 tablets ity of tablet 00:00: now then 1 [place] 00 tablet Medical daily for Branch the next 4 days azithromyci 2022-0 Yes [id number] Take 2 Univers n 250 mg 1-05 tablets ity of tablet 00:00: now then 1 00 tablet Medical daily for Branch the next 4 days azithromyci 2022-0 Yes [id number] Take 2 Univers n 250 mg 1-05 tablets ity of tablet 00:00: now then 1 00 tablet Medical daily for Branch the next 4 days azithromyci 2022-0 Yes [id number] Take 2 Univers n 250 mg 1-05 tablets ity of tablet 00:00: now then 1 [place] 00 tablet Medical daily for Branch the next 4 days azithromyci 2022-0 Yes [id number] Take 2 Univers n 250 mg 1-05 tablets ity of tablet 00:00: now then 1 [place] 00 tablet Medical daily for Branch the next 4 days azithromyci 3-0 Yes [id number] Take 2 Univers n 250 mg 1-05 tablets ity of tablet 00:00: now then 1 [place] 00 tablet Medical daily for Branch the next 4 days azithromyci 3-0 Yes [id number] Take 2 Univers n 250 mg 1-05 tablets ity of tablet 00:00: now then 1 [place] 00 tablet Medical daily for Branch the next 4 days azithromyci 2022-0 Yes [id number] Take 2 Univers n 250 mg 1-05 tablets ity of tablet 00:00: now then 1 [place] 00 tablet Medical daily for Branch the next 4 days azithromyci 2023-0 Yes [id number] Take 2 Univers n 250 mg 1-05 tablets ity of tablet 00:00: now then 1 [place] 00 tablet Medical daily for Branch the next 4 days azithromyci 2023-0 Yes [id number] Take 2 Univers n 250 mg 1-05 tablets ity of tablet 00:00: now then 1 [place] 00 tablet Medical daily for Branch the next 4 days fluticasone 2022-0 Yes [id number] 1{spray Use 1 Univers propionate 1-03 } [place] in ity o f 50 00:00: each [place] mcg/actuati 00 nostril in Me dical on nasal the Branch spray morning. fluticasone 2022-0 Yes [id number] 1{spray Use 1 Univers propionate 1-03 } [place] in ity o f 50 00:00: each [place] mcg/actuati 00 nostril in Me dical on nasal the Branch spray morning. fluticasone 2022-0 Yes [id number] 1{spray Use 1 Univers propionate 1-03 } [place] in ity o f 50 00:00: each [place] mcg/actuati 00 nostril in Me dical on nasal the Branch spray morning. fluticasone 2022-0 Yes [id number] 1{spray Use 1 Univers propionate 1-03 } [place] in ity o f 50 00:00: each [place] mcg/actuati 00 nostril in Me dical on nasal the Branch spray morning. fluticasone 2022-0 Yes [id number] 1{spray Use 1 Univers propionate 1-03 } [place] in ity o f 50 00:00: each [place] mcg/actuati 00 nostril in Me dical on nasal the Branch spray morning. fluticasone 2022-0 Yes [id number] 1{spray Use 1 Univers propionate 1-03 } [place] in ity o f 50 00:00: each [place] mcg/actuati 00 nostril in Me dical on nasal the Branch spray morning. fluticasone 2022-0 Yes [id number] 1{spray Use 1 Univers propionate 1-03 } [place] in ity o f 50 00:00: each [place] mcg/actuati 00 nostril in Me dical on nasal the Branch spray morning. fluticasone 2022-0 Yes [id number] 1{spray Use 1 Univers propionate 1-03 } [place] in [facility] 50 00:00: each [place] mcg/actuati 00 nostril in Me dical on nasal the Branch spray morning. fluticasone 2022-0 Yes [id number] 1{spray Use 1 Univers propionate 1-03 } [place] in [facility] 50 00:00: each [place] mcg/actuati 00 nostril in Me dical on nasal the Branch spray morning. fluticasone 2022-0 Yes [id number] 1{spray Use 1 Univers propionate 1-03 } [place] in [facility] 50 00:00: each [place] mcg/actuati 00 nostril in Me dical on nasal the Branch spray morning. fluticasone 2022-0 Yes [id number] 1{spray Use 1 Univers propionate 1-03 } [place] in [place] [address] 00:00: each [place] mcg/actuati 00 nostril in Me dical on nasal the Branch spray morning. fluticasone 2022-0 Yes [id number] 1{spray Use 1 Univers propionate 1-03 } [place] in [place] [address] 00:00: each [place] mcg/actuati 00 nostril in Me dical on nasal the Branch spray morning. fluticasone 2022-0 Yes [id number] 1{spray Use 1 Univers propionate 1-03 } [place] in [place] [address] 00:00: each [place] mcg/actuati 00 nostril in Me dical on nasal the Branch spray morning. fluticasone 2022-0 Yes [id number] 1{spray Use 1 Univers propionate 1-03 } [place] in [place] [address] 00:00: each [place] mcg/actuati 00 nostril in Me dical on nasal the Branch spray morning. fluticasone 2022-0 Yes [id number] 1{spray Use 1 Univers propionate 1-03 } [place] in [facility] 50 00:00: each [place] mcg/actuati 00 nostril in Me dical on nasal the Branch spray morning. fluticasone 2022-0 Yes [id number] 1{spray Use 1 Univers propionate 1-03 } [place] in [facility] 50 00:00: each [place] mcg/actuati 00 nostril in Me dical on nasal the Branch spray morning. fluticasone 2022-0 Yes [id number] 1{spray Use 1 Univers propionate 1-03 } [place] in ity o f 50 00:00: each [place] mcg/actuati 00 nostril in Me dical on nasal the Branch spray morning. fluticasone 2022-0 Yes [id number] 1{spray Use 1 Univers propionate 1-03 } [place] in ity o f 50 00:00: each [place] mcg/actuati 00 nostril in Me dical on nasal the Branch spray morning. fluticasone 2022-0 Yes [id number] 1{spray Use 1 Univers propionate 1-03 } [place] in ity o f 50 00:00: each [place] mcg/actuati 00 nostril in Me dical on nasal the Branch spray morning. Blood-Gluco 2021-08 Yes [id number] Take blood Univers se Meter 2-06 sugar 4 ity of (TRUE 00:00: times a [employer] Medical GLUCOSE Branch METER) Kit blood sugar 2021-08 Yes [id number] Take blood Univers diagnostic 2-06 sugar 4 ity of (TRUE 00:00: times a [facility] Medical GLUCOSE Branch TEST STRIP) strip lancets 2021-08 Yes [id number] Take blood Univers gauge Misc 2-06 sugar 4 ity of 00:00: times a day Medical Branch Blood-Gluco 2021-08 Yes [id number] Take blood Univers se Meter 2-06 sugar 4 ity of (TRUE 00:00: times a [facility] Medical GLUCOSE Branch METER) Kit blood sugar 2021-08 Yes [id number] Take blood Univers diagnostic 2-06 sugar 4 ity of (TRUE 00:00: times a [facility] Medical GLUCOSE Branch TEST STRIP) strip lancets 2021-08 Yes [id number] Take blood Univers gauge Misc 2-06 sugar 4 ity of 00:00: times a Medical Branch Blood-Gluco 2021-08 Yes [id number] Take blood Univers se Meter 2-06 sugar 4 ity of (TRUE 00:00: times a MET[facility] Medical GLUCOSE Branch METER) Kit blood sugar 2021-08 Yes [id number] Take blood Univers diagnostic 2-06 sugar 4 ity of (TRUE 00:00: times a METRIX day Medical GLUCOSE Branch TEST STRIP) strip lancets 2021-08 Yes [id number] Take blood Univers gauge Misc 2-06 sugar 4 ity of 00:00: times a Medical Branch Blood-Gluco 2021-08 Yes [id number] Take blood Univers se Meter 2-06 sugar 4 ity of (TRUE 00:00: times a [place] GLUCOSE Branch METER) Kit blood sugar 2021-08 Yes [id number] Take blood Univers diagnostic 2-06 sugar 4 ity of (TRUE 00:00: times a [place] Medical GLUCOSE Branch TEST STRIP) strip lancets 2021-08 Yes [id number] Take blood Univers gauge Misc 2-06 sugar 4 ity of 00:00: times a Medical Branch Blood-Gluco 2021-08 Yes [id number] Take blood Univers se Meter 2-06 sugar 4 ity of (TRUE 00:00: times a [place] Medical GLUCOSE Branch METER) Kit blood sugar 2021-08 Yes [id number] Take blood Univers diagnostic 2-06 sugar 4 ity of (TRUE 00:00: times a [place] Medical GLUCOSE Branch TEST STRIP) strip lancets 2021-08 Yes [id number] Take blood Univers gauge Misc 2-06 sugar 4 ity of 00:00: times a Medical Branch Blood-Gluco 2021-08 Yes [id number] Take blood Univers se Meter 2-06 sugar 4 ity of (TRUE 00:00: times a [place] Medical GLUCOSE Branch METER) Kit blood sugar 2021-08 Yes [id number] Take blood Univers diagnostic 2-06 sugar 4 ity of (TRUE 00:00: times a [place] Medical GLUCOSE Branch TEST STRIP) strip lancets 2021-08 Yes [id number] Take blood Univers gauge Misc 2-06 sugar 4 ity of 00:00: times a Medical Branch Blood-Gluco 2021-08 Yes [id number] Take blood Univers se Meter 2-06 sugar 4 ity of (TRUE 00:00: times a [place] Medical GLUCOSE Branch METER) Kit blood sugar 2021-08 Yes [id number] Take blood Univers diagnostic 2-06 sugar 4 ity of (TRUE 00:00: times a [place] Medical GLUCOSE Branch TEST STRIP) strip lancets 2021-08 Yes [id number] Take blood Univers gauge Misc 2-06 sugar 4 ity of 00:00: times a Medical Branch Blood-Gluco 2021-08 Yes [id number] Take blood Univers se Meter 2-06 sugar 4 ity of (TRUE 00:00: times a RIX Medical GLUCOSE Branch METER) Kit blood sugar 2021-08 Yes [id number] Take blood Univers diagnostic 2-06 sugar 4 ity of (TRUE 00:00: times a [place] Medical GLUCOSE Branch TEST STRIP) strip lancets 2021-08 Yes [id number] Take blood Univers gauge Misc 2-06 sugar 4 ity of 00:00: times a Medical Branch Blood-Gluco 2021-08 Yes [id number] Take blood Univers se Meter 2-06 sugar 4 ity of (TRUE 00:00: times a [place] Medical GLUCOSE Branch METER) Kit blood sugar 2021-08 Yes [id number] Take blood Univers diagnostic 2-06 sugar 4 ity of (TRUE 00:00: times a [place] Medical GLUCOSE Branch TEST STRIP) strip lancets 2021-08 Yes [id number] Take blood Univers gauge Misc 2-06 sugar 4 ity of 00:00: times a Medical Branch Blood-Gluco 2021-08 Yes [id number] Take blood Univers se Meter 2-06 sugar 4 ity of (TRUE 00:00: times a [place] Medical GLUCOSE Branch METER) Kit blood sugar 2021-08 Yes [id number] Take blood Univers diagnostic 2-06 sugar 4 ity of (TRUE 00:00: times a [place] Medical GLUCOSE Branch TEST STRIP) strip lancets 2021-08 Yes [id number] Take blood Univers gauge Misc 2-06 sugar 4 ity of 00:00: times a Medical Branch Blood-Gluco 2021-08 Yes [id number] Take blood Univers se Meter 2-06 sugar 4 ity of (TRUE 00:00: times a [place] [facility] GLUCOSE Branch METER) Kit blood sugar 2021-08 Yes [id number] Take blood Univers diagnostic 2-06 sugar 4 ity of (TRUE 00:00: times a METRIX Medical GLUCOSE Branch TEST STRIP) strip lancets 2021-08 Yes [id number] Take blood Univers gauge Misc 2-06 sugar 4 ity of 00:00: times a Medical Branch Blood-Gluco 2021-08 Yes [id number] Take blood Univers se Meter 2-06 sugar 4 ity of (TRUE 00:00: times a [place] [facility] GLUCOSE Branch METER) Kit blood sugar 2021-08 Yes [id number] Take blood Univers diagnostic 2-06 sugar 4 ity of (TRUE 00:00: times a [place] Medical GLUCOSE Branch TEST STRIP) strip lancets 2021-08 Yes [id number] Take blood Univers gauge Misc 2-06 sugar 4 ity of 00:00: times a Medical Branch Blood-Gluco 2021-08 Yes [id number] Take blood Univers se Meter 2-06 sugar 4 ity of (TRUE 00:00: times a [place] [facility] GLUCOSE Branch METER) Kit blood sugar 2021-08 Yes [id number] Take blood Univers diagnostic 2-06 sugar 4 ity of (TRUE 00:00: times a [place] [facility] GLUCOSE Branch TEST STRIP) strip lancets 2021-08 Yes [id number] Take blood Univers gauge Misc 2-06 sugar 4 ity of 00:00: times a Medical Branch Blood-Gluco 2021-08 Yes [id number] Take blood Univers se Meter 2-06 sugar 4 ity of (TRUE 00:00: times a [place] GLUCOSE Branch METER) Kit blood sugar 2021-08 Yes [id number] Take blood Univers diagnostic 2-06 sugar 4 ity of (TRUE 00:00: times a [place] [facility] GLUCOSE Branch TEST STRIP) strip lancets 2021-08 Yes [id number] Take blood Univers gauge Misc 2-06 sugar 4 ity of 00:00: times a Medical Branch Blood-Gluco 2021-08 Yes [id number] Take blood Univers se Meter 2-06 sugar 4 ity of (TRUE 00:00: times a [place] [facility] GLUCOSE Branch METER) Kit blood sugar 2021-08 Yes [id number] Take blood Univers diagnostic 2-06 sugar 4 ity of (TRUE 00:00: times a [place] [facility] GLUCOSE Branch TEST STRIP) strip lancets 2021-08 Yes [id number] Take blood Univers gauge Misc 2-06 sugar 4 ity of 00:00: times a Medical Branch Blood-Gluco 2021-08 Yes [id number] Take blood Univers se Meter 2-06 sugar 4 ity of (TRUE 00:00: times a METRI[facility] Medical GLUCOSE Branch METER) Kit blood sugar 2021-08 Yes [id number] Take blood Univers diagnostic 2-06 sugar 4 ity of (TRUE 00:00: times a [place] [facility] GLUCOSE Branch TEST STRIP) strip lancets 2021-08 Yes [id number] Take blood Univers gauge Misc 2-06 sugar 4 ity of 00:00: times a Medical Branch Blood-Gluco 2021-08 Yes [id number] Take blood Univers se Meter 2-06 sugar 4 ity of (TRUE 00:00: times a [place] [facility] GLUCOSE Branch METER) Kit blood sugar 2021-08 Yes [id number] Take blood Univers diagnostic 2-06 sugar 4 ity of (TRUE 00:00: times a [place] [facility] GLUCOSE Branch TEST STRIP) strip lancets 2021-08 Yes [id number] Take blood Univers gauge Misc 2-06 sugar 4 ity of 00:00: times a Medical Branch Blood-Gluco 2021-08 Yes [id number] Take blood Univers se Meter 2-06 sugar 4 ity of (TRUE 00:00: times a [place] [facility] GLUCOSE Branch METER) Kit blood sugar 2021-08 Yes [id number] Take blood Univers diagnostic 2-06 sugar 4 ity of (TRUE 00:00: times a [place] [facility] GLUCOSE Branch TEST STRIP) strip lancets 2021-08 Yes [id number] Take blood Univers gauge Misc 2-06 sugar 4 ity of 00:00: times a Medical Branch Blood-Gluco 2021-08 Yes [id number] Take blood Univers se Meter 2-06 sugar 4 ity of (TRUE 00:00: times a [place] [facility] GLUCOSE Branch METER) Kit blood sugar 2021-08 Yes [id number] Take blood Univers diagnostic 2-06 sugar 4 ity of (TRUE 00:00: times a [place] [facility] GLUCOSE Branch TEST STRIP) strip lancets 2021-08 Yes [id number] Take blood Univers gauge Misc 2-06 sugar 4 ity of 00:00: times a Medical Branch Blood-Gluco 2021-08 Yes [id number] Take blood Univers se Meter 2-06 sugar 4 ity of (TRUE 00:00: times a [facility] Medical GLUCOSE Branch METER) Kit blood sugar 2021-08 Yes [id number] Take blood Univers diagnostic 2-06 sugar 4 ity of (TRUE 00:00: times a RIX Medical GLUCOSE Branch TEST STRIP) strip lancets 2021-08 Yes [id number] Take blood Univers gauge Misc 2-06 sugar 4 ity of 00:00: times a Medical Branch Blood-Gluco 2021-08 Yes [id number] Take blood Univers se Meter 2-06 sugar 4 ity of (TRUE 00:00: times a RIX Medical GLUCOSE Branch METER) Kit blood sugar 2021-08 Yes [id number] Take blood Univers diagnostic 2-06 sugar 4 ity of (TRUE 00:00: times a [place] [facility] GLUCOSE Branch TEST STRIP) strip lancets 2021-08 Yes [id number] Take blood Univers gauge Misc 2-06 sugar 4 ity of 00:00: times a Medical Branch Blood-Gluco 2021-08 Yes [id number] Take blood Univers se Meter 2-06 sugar 4 ity of (TRUE 00:00: times a [facility]IX Medical GLUCOSE Branch METER) Kit blood sugar 2021-08 Yes [id number] Take blood Univers diagnostic 2-06 sugar 4 ity of (TRUE 00:00: times a [facility] GLUCOSE Branch TEST STRIP) strip lancets 2021-08 Yes [id number] Take blood Univers gauge Misc 2-06 sugar 4 ity of 00:00: times a Medical Branch Blood-Gluco 2021-08 Yes [id number] Take blood Univers se Meter 2-06 sugar 4 ity of (TRUE 00:00: times a [place] Medical GLUCOSE Branch METER) Kit blood sugar 2021-08 Yes [id number] Take blood Univers diagnostic 2-06 sugar 4 ity of (TRUE 00:00: times a [facility] Medical GLUCOSE Branch TEST STRIP) strip lancets 2021-08 Yes [id number] Take blood Univers gauge Misc 2-06 sugar 4 ity of 00:00: times a Medical Branch Blood-Gluco 2021-08 Yes [id number] Take blood Univers se Meter 2-06 sugar 4 ity of (TRUE 00:00: times a METRIX Medical GLUCOSE Branch METER) Kit blood sugar 2021-08 Yes [id number] Take blood Univers diagnostic 2-06 sugar 4 ity of (TRUE 00:00: times a [facility] GLUCOSE Branch TEST STRIP) strip lancets 2021-08 Yes [id number] Take blood Univers gauge Misc 2-06 sugar 4 ity of 00:00: times a Medical Branch Blood-Gluco 2021-08 Yes [id number] Take blood Univers se Meter 2-06 sugar 4 ity of (TRUE 00:00: times a [facility] Medical GLUCOSE Branch METER) Kit blood sugar 2021-08 Yes [id number] Take blood Univers diagnostic 2-06 sugar 4 ity of (TRUE 00:00: times a [facility] GLUCOSE Branch TEST STRIP) strip lancets 2021-08 Yes [id number] Take blood Univers gauge Misc 2-06 sugar 4 ity of 00:00: times a Medical Branch Blood-Gluco 2021-08 Yes [id number] Take blood Univers se Meter 2-06 sugar 4 ity of (TRUE 00:00: times a [facility] Medical GLUCOSE Branch METER) Kit blood sugar 2021-08 Yes [id number] Take blood Univers diagnostic 2-06 sugar 4 ity of (TRUE 00:00: times a [facility] Medical GLUCOSE Branch TEST STRIP) strip lancets 2021-08 Yes [id number] Take blood Univers gauge Misc 2-06 sugar 4 ity of 00:00: times a Medical Branch Blood-Gluco 2021-08 Yes [id number] Take blood Univers se Meter 2-06 sugar 4 ity of (TRUE 00:00: times a [facility] Medical GLUCOSE Branch METER) Kit blood sugar 2021-08 Yes [id number] Take blood Univers diagnostic 2-06 sugar 4 ity of (TRUE 00:00: times a [facility] Medical GLUCOSE Branch TEST STRIP) strip lancets 2021-08 Yes [id number] Take blood Univers gauge Misc 2-06 sugar 4 ity of 00:00: times a Medical Branch No known 2021-08 No No known Unive rs medications 1-22 medication it y of 11:13: [address] No known 2021- No No known Unive rs medications 1-22 medication it y of 11:13: [address] No known 2021- No No known Unive rs medications 1-22 medication it y of 11:13: [address] No known 2021- No No known Unive rs medications 1-22 medication it y of 11:13: [address] No known 2021- No No known Unive rs medications 1-22 medication it y of 11:13: [address] No known 2021- No No known Unive rs medications 0-19 medication it y of 15:55: [address] No known 2021- No No known Unive rs medications 0-19 medication it y of 15:55: [address] No known 2021-0 No No known Unive rs medications 9-06 medication it y of 16:41: [address] No known 2021-0 No No known Unive rs medications 9-06 medication it y of 16:41: [address] No known 2021-0 No No known Unive rs medications 8-09 medication it y of 16:45: [address] No known 2021-0 No No known Unive rs medications 8-09 medication it y of 16:45: [address] Immunizations Ordered Filled Immunization Date Status Comments [facility] e Immunization Name Name TD 2022-07-27 Completed University of 00:00:00 [facility] TDAP 2022-07-27 Completed University of 00:00: [facility] TDAP 2022-07-27 Completed University of 00:00: [facility] TDAP 2022-07-27 Completed University of 00:00:00 [facility] TDAP 2022-07-27 Completed University of 00:00:00 [facility] TDAP 2022-07-27 Completed University of 00:00:00 [facility] TDAP 2022-07-27 Completed University of 00:00:00 [facility] TDAP 2022-07-27 Completed University of 00:00:00 [facility] TDAP 2022-07-27 Completed University of 00:00:00 [facility] TDAP 2022-07-27 Completed University of 00:00:00 [facility] TDAP 2022-07-27 Completed University of 00:00:00 [facility] TDAP 2022-07-27 Completed University of 00:00:00 [facility] TDAP 2022-07-27 Completed University of 00:00:00 [facility] TDAP 2022-07-27 Completed University of 00:00:00 [facility] TDAP 2022-07-27 Completed University of 00:00:00 [facility] TDAP 2022-07-27 Completed University of 00:00:00 [facility] TDAP 2022-07-27 Completed University of 00:00:00 [facility] TDAP 2022-07-27 Completed University of 00:00:00 [facility] TDAP 2022-07-27 Completed University of 00:00:00 [facility] TDAP 2022-07-27 Completed University of 00:00:00 [facility] TDAP 2022-07-27 Completed University of 00:00:00 [facility] TDAP 2022-07-27 Completed University of 00:00:00 [facility] Vital Signs Vital Name Observation Time Observation Value Comments Source Systolic blood 2022-09-23 20:59:00 135 mm[Hg] Univer sity of pressure [facility] Diastolic blood 2022-09-23 20:59:00 81 mm[Hg] Unive rsity of pressure [facility] Heart rate 2022-09-23 20:57:00 95 /min [facility] Body temperature 2022-09-23 20:57:00 36.11 Destiny [facility] Respiratory rate 2022-09-23 20:57:00 18 /min [facility] Body height 2022-09-23 20:57:00 165.1 cm [facility] Body weight 2022-09-23 20:57:00 121.383 kg [facility] BMI 2022-09-23 20:57:00 44.53 kg/m2 [facility] Systolic blood 2022-09-21 20:53:00 137 mm[Hg] Univer sity of pressure [facility] Diastolic blood 2022-09-21 20:53:00 78 mm[Hg] Unive rsity of pressure [facility] Heart rate 2022-09-21 20:53:00 93 /min [facility] Body temperature 2022-09-21 20:53:00 36.06 Destiny [facility] Respiratory rate 2022-09-21 20:53:00 18 /min [facility] Body height 2022-09-21 20:53:00 165.1 cm [facility] Body weight 2022-09-21 20:53:00 120.249 kg [facility] BMI 2022-09-21 20:53:00 44.11 kg/m2 [facility] Systolic blood 2022-09-16 20:44:00 134 mm[Hg] Univer sity of pressure [facility] Diastolic blood 2022-09-16 20:44:00 77 mm[Hg] Unive rsity of pressure [facility] Heart rate 2022-09-16 20:44:00 100 /min [facility] Body temperature 2022-09-16 20:44:00 36.33 Destiny [facility] Respiratory rate 2022-09-16 20:44:00 18 /min Univ [facility] Body height 2022-09-16 20:44:00 165.1 cm [facility] Body weight 2022-09-16 20:44:00 119.568 kg [facility] BMI 2022-09-16 20:44:00 43.87 kg/m2 [facility] Systolic blood 2022-09-14 22:03:00 130 mm[Hg] Univer sity of pressure [facility] Diastolic blood 2022-09-14 22:03:00 83 mm[Hg] Unive rsity of pressure [facility] Heart rate 2022-09-14 22:03:00 100 /min [facility] Body temperature 2022-09-14 22:03:00 35.61 Destiny [facility] Respiratory rate 2022-09-14 22:03:00 18 /min Univ [facility] Body height 2022-09-14 22:03:00 165.1 cm [facility] Body weight 2022-09-14 22:03:00 119.024 kg [facility] BMI 2022-09-14 22:03:00 43.67 kg/m2 [facility] Systolic blood 2022-09-09 21:25:00 136 mm[Hg] Univer sity of pressure [facility] Diastolic blood 2022-09-09 21:25:00 70 mm[Hg] Unive rsity of pressure [facility] Heart rate 2022-09-09 21:25:00 87 /min [facility] Body temperature 2022-09-09 21:25:00 36.89 Destiny [facility] Respiratory rate 2022-09-09 21:25:00 17 /min Univ [facility] Body height 2022-09-09 21:25:00 165.1 cm [facility] Body weight 2022-09-09 21:25:00 120.884 kg [facility] BMI 2022-09-09 21:25:00 44.35 kg/m2 [facility] Systolic blood 2022-08-31 17:25:00 139 mm[Hg] Univer sity of pressure [facility] Diastolic blood 2022-08-31 17:25:00 80 mm[Hg] Unive rsity of pressure [facility] Heart rate 2022-08-31 17:25:00 81 /min [facility] Body temperature 2022-08-31 17:25:00 37.28 Destiny [facility] Respiratory rate 2022-08-31 17:25:00 18 /min Univ [facility] Body height 2022-08-31 17:25:00 165.1 cm [facility] Body weight 2022-08-31 17:25:00 115.384 kg [facility] BMI 2022-08-31 17:25:00 42.33 kg/m2 [facility] Systolic blood 2022-08-18 22:06:00 128 mm[Hg] Univer sity of pressure [facility] Diastolic blood 2022-08-18 22:06:00 86 mm[Hg] Unive rsity of pressure [facility] Heart rate 2022-08-18 21:50:00 110 /min [facility] Body temperature 2022-08-18 21:50:00 35.89 Destiny [facility] Respiratory rate 2022-08-18 21:50:00 18 /min Univ [facility] Body height 2022-08-18 21:50:00 165.1 cm [facility] Body weight 2022-08-18 21:50:00 114.397 kg [facility] BMI 2022-08-18 21:50:00 41.97 kg/m2 [facility] Systolic blood 2022-08-12 21:23:00 118 mm[Hg] Univer sity of pressure [facility] Diastolic blood 2022-08-12 21:23:00 74 mm[Hg] Unive rsity of pressure [facility] Heart rate 2022-08-12 21:23:00 124 /min [facility] Body temperature 2022-08-12 21:14:00 35.56 Destiny [facility] Respiratory rate 2022-08-12 21:14:00 17 /min Univ [facility] Body height 2022-08-12 21:14:00 165.1 cm [facility] Body weight 2022-08-12 21:14:00 114.987 kg [facility] BMI 2022-08-12 21:14:00 42.18 kg/m2 [facility] Systolic blood 2022-08-10 22:28:00 129 mm[Hg] Univer sity of pressure [facility] Diastolic blood 2022-08-10 22:28:00 76 mm[Hg] Unive rsity of pressure [facility] Heart rate 2022-08-10 22:28:00 108 /min [facility] Body temperature 2022-08-10 22:28:00 37.33 Destiny [facility] Respiratory rate 2022-08-10 22:28:00 18 /min Univ [facility] Body height 2022-08-10 22:28:00 165.1 cm [facility] Body weight 2022-08-10 22:28:00 110.859 kg [facility] BMI 2022-08-10 22:28:00 40.67 kg/m2 Universi ty of [facility] Oxygen saturation in 2022-08-10 22:28:00 97 /min University Arterial blood by [facility] Pulse oximetry Branch Systolic blood 2022-07-27 15:39:00 128 mm[Hg] Univer sity of pressure [facility] Diastolic blood 2022-07-27 15:39:00 85 mm[Hg] Unive rsity of pressure [facility] Branch Heart rate 2022-07-27 15:39:00 107 /min Universi ty of [facility] Body temperature 2022-07-27 15:32:00 36.5 Destiny Univ ersity of [facility] Respiratory rate 2022-07-27 15:32:00 18 /min Univ ersity of [facility] Body height 2022-07-27 15:32:00 165.1 cm Universi ty of [facility] Body weight 2022-07-27 15:32:00 114.845 kg [facility] [place] BMI 2022-07-27 15:32:00 42.13 kg/m2 [facility] Systolic blood 2022-07-14 22:12:00 119 mm[Hg] Univer sity of pressure [facility] Diastolic blood 2022-07-14 22:12:00 74 mm[Hg] Unive rsity of pressure [facility] Heart rate 2022-07-14 22:12:00 97 /min Universi ty of [facility] Body temperature 2022-07-14 22:12:00 36.94 Destiny Univ ersity of [facility] Respiratory rate 2022-07-14 22:12:00 18 /min Univ ersity of [facility] Branch Body height 2022-07-14 22:12:00 165.1 cm [facility] [place] Body weight 2022-07-14 22:12:00 114.902 kg [facility] BMI 2022-07-14 22:12:00 42.15 kg/m2 Universi ty of [facility] Systolic blood 2022-06-29 16:47:00 121 mm[Hg] Univer sity of pressure [facility] Diastolic blood 2022-06-29 16:47:00 68 mm[Hg] Unive rsity of pressure [facility] Heart rate 2022-06-29 16:47:00 83 /min [facility] Body temperature 2022-06-29 16:47:00 36.89 Destiny [facility] Respiratory rate 2022-06-29 16:47:00 18 /min Univ [facility] Body height 2022-06-29 16:47:00 165.1 cm [facility] Body weight 2022-06-29 16:47:00 114.261 kg [facility] BMI 2022-06-29 16:47:00 41.92 kg/m2 [facility] Systolic blood 2022-05-26 20:34:00 125 mm[Hg] Univer sity of pressure [facility] Diastolic blood 2022-05-26 20:34:00 64 mm[Hg] Unive rsity of pressure [facility] Heart rate 2022-05-26 20:34:00 85 /min [facility] Body temperature 2022-05-26 20:34:00 36.17 Destiny [facility] Respiratory rate 2022-05-26 20:34:00 18 /min Univ [facility] Body height 2022-05-26 20:34:00 165.1 cm [facility] Body weight 2022-05-26 20:34:00 111.386 kg [facility] BMI 2022-05-26 20:34:00 40.86 kg/m2 [facility] Systolic blood 2022-04-13 20:51:00 127 mm[Hg] Univer sity of pressure [facility] Diastolic blood 2022-04-13 20:51:00 76 mm[Hg] Unive rsity of pressure [facility] Heart rate 2022-04-13 20:51:00 96 /min [facility] Body temperature 2022-04-13 20:51:00 35.78 Destiny [facility] Respiratory rate 2022-04-13 20:51:00 18 /min [facility] Body weight 2022-04-13 20:51:00 107.865 kg [facility] BMI 2022-04-13 20:51:00 39.57 kg/m2 [facility] Procedures Procedure Date / Time Performed Performing Clinician Sour e NON-STRESS TEST 2022-09-23 22:27:56 Irlanda Manajrrez [facility] POCT URINALYSIS 2022-09-23 21:00:00 Akinsipe Cristiane C [facility] NON-STRESS TEST 2022-09-21 22:17:15 Akinsipe Cristiane C U [facility] POCT GLUCOSE 2022-09-21 21:53:00 Akinsipe Cristiane C [facility] (AUTOMATED) [facility] POCT URINALYSIS 2022-09-21 20:54:00 Akinsipe Cristiane C [facility] NON-STRESS TEST 2022-09-16 21:49:26 Akinsipe Cristiane C U [facility] POCT URINALYSIS 2022-09-16 20:48:00 Akinsipe Cristiane C [facility] POCT URINALYSIS 2022-09-14 22:07:00 Akinsipe Cristiane C [facility] DIABETES TESTING 2022-09-09 06:01:00 Doctor Unassigned, No [facility] REPORTS Name [facility] [place] POCT URINALYSIS 2022-09-09 00:00:00 Akinsipe Cristiane C [facility] POCT GLUCOSE(AGE 2022-08-31 17:50:00 AkinValentin cabrerailola Evaristo [facility] >30DAYS) [facility] [place] POCT GLUCOSE 2022-08-31 17:46:00 Akinsipe Cristiane C [facility] (AUTOMATED) [facility] POCT URINALYSIS 2022-08-31 17:27:00 Akinsipe Cristiane C [facility] DIABETES TESTING 2022-08-18 06:01:00 Doctor Unassigned, No [facility] REPORTS Name Medical Branch POCT URINALYSIS 2022-08-18 00:00:00 AkinValentin cabrerailola C [facility] TDAP VACCINE, >11 YRS, 2022-07-27 16:00:52 Cristiane Hendrickson [facility] POCT URINALYSIS 2022-07-27 15:33:00 Cristiane Hendrickson [facility] DIABETES TESTING 2022-07-27 06:01:00 Doctor Unassigned, No Unive [facility] REPORTS [facility] POCT URINALYSIS 2022-07-14 22:13:00 Cristiane Hendrickson [facility] GLUCOSE 1 HOUR POST 2022-06-29 17:47:00 Keli Grider [facility] CBC WITH DIFF 2022-06-29 17:47:00 Keli Grider [facility] POCT URINALYSIS 2022-06-29 00:00:00 Cristiane Hendrickson [facility] POCT URINALYSIS 2022-05-26 20:36:00 Cristiane Hendrickson [facility] POCT URINALYSIS 2022-04-13 20:52:00 Cristiane Hendrickson [facility] Encounters Start End Encounter Admission Attending Care Care Encounter Source Date/Time Date/Time Type Type Clinicians Facility Department ID 2022-09-30 2022-09-30 Outpatient R [facility] [id number] Univers 14:45:00 14:45:00 [facility] 2022-09-30 2022-09-30 Outpatient R [facility] [id number] Univers 14:30:00 14:30:00 [facility] 2022-09-28 2022-09-28 Outpatient R [facility] [id number] Univers 14:30:00 14:30:00 [facility] 2022-09-23 2022-09-23 Outpatient R BRADEN [facility] [id number] Univers 15:00:00 15:29:50 IRLANDA [facility] 2022-09-23 2022-09-23 Routine Risk, Lat-Jicjq-Pq/High [facility] 1. 2.840.114 [id number] Univers 15:00:00 15:29:50 Irlanda Manjarrez PARADI OPERATOR [id number] ity of Visit REGIONAL 4.2.7.2.686 Yoni as MATERNAL [id number] [facility] ical & CHILD [address] [place] [address] 2022-09-21 2022-09-21 Outpatient R AKINSIPE, [facility] [id number] [facility] 14:45:00 15:56:05 CRISTIANE ity o f [facility] 2022-09-21 2022-09-21 Routine Akinsipe, [facility] [id number] [facility] 14:45:00 15:56:05 Cristiane C PARADI OPERATOR [id number] ity of Visit REGIONAL 4.2.7.2.686 Yoni as MATERNAL [id number] [facility] & CHILD [address] [place] [address] 2022-09-16 2022-09-16 Outpatient R AKINSIPE, [facility] [id number] Univers 14:45:00 15:45:35 CRISTIANE ity o f [facility] 2022-09-16 2022-09-16 Routine Akinpe, [facility] [id number] Univers 14:45:00 15:45:35 Cristiane C PARADI OPERATOR [id number] ity of Visit REGIONAL 4.2.7.2.686 Yoni as MATERNAL [id number] [facility] & CHILD [address] [place] [address] 2022-09-15 2022-09-15 Outpatient R AKINSIPE, [facility] [id number] Univers 14:30:00 14:30:00 CRISTIANE ity o f [facility] 2022-09-15 2022-09-15 [facility] 1.2.840.114 [id number] Univers 00:00:00 00:00:00 Cristiane C PARADI OPERATOR 350.1.13.10 ity of REGIONAL 4.2.7.2.686 Yoni as MATERNAL [id number] [facility] & CHILD [address] [place] [address] 2022-09-14 2022-09-14 Outpatient R AKINSIPE, [facility] [id number] Univers 15:30:00 16:44:54 CRISTIANE ity o f [facility] 2022-09-14 2022-09-14 Routine Akinscarpe, [facility] [id number] Univers 15:30:00 16:44:54 Cristiane Loera PARADI OPERATOR [id number] ity of Visit REGIONAL 4.2.7.2.686 Yoni as MATERNAL [id number] [facility] ical & CHILD [address] [place] [address] 2022-09-09 2022-09-09 Outpatient R BRADEN [facility] [id number] Univers 14:30:00 15:57:59 IRLANDA ity [facility] 2022-09-09 2022-09-09 Routine Risk, Gld-Cbinw-Ov/High [facility] 1. 2.840.114 [id number] Univers 14:30:00 15:57:59 Irlanda Manjarrez PARADI OPERATOR 350.1.13.[address] [facility] 4.2.7.2.686 Yoni as MATERNAL [id number] Med ical & CHILD [address] [place] [address] 2022-09-09 2022-09-09 Orders Doctor AMALIA 1.2.840.114 [id number] Univers 00:00:00 00:00:00 Only Unassigned, RISHABH 350.1.13.10 ity of [place] [facility] 4.2.7.2.686 Yoni as [id number] [address] 2022-09-01 2022-09-01 Outpatient R AKINVELIA, [facility] [id number] Univers 15:30:00 15:30:00 CRISTIANE ity o f [facility] 2022-08-31 2022-08-31 Outpatient R AKINSIPE, [facility] [id number] Univers 15:30:00 15:30:00 CRISTIANE ity o f [facility] 2022-08-31 2022-08-31 Outpatient R AKINSCARPE, [facility] [id number] Univers 11:00:00 11:52:46 CRISTIANE ity o [facility] 2022-08-31 2022-08-31 Routine Akinsipe, [facility] [id number] Univers 11:00:00 11:52:46 Cristiane C PARADI OPERATOR [id number] ity of Visit REGIONAL 4.2.7.2.686 Yoni as MATERNAL [id number] [facility] & [address] 2022-08-19 2022-08-19 Outpatient R AKINPE, [facility] [id number] Univers 15:45:00 15:45:00 CRISTIANE ity o f [facility] 2022-08-18 2022-08-18 Outpatient R AKINSIPE, [facility] [id number] Univers 14:00:00 16:21:50 CRISTIANE ity o f [facility] 2022-08-18 2022-08-18 Routine Akinsipe, [facility] [id number] Univers 14:00:00 14:15:00 Cristiane C PARADI OPERATOR 350.1.13.10 ity of Visit REGIONAL 4.2.7.2.686 Yoni as MATERNAL [id number] [facility] & [address] 2022-08-18 2022-08-18 Orders Doctor AMALIA 1.2.840.114 [id number] Univers 00:00:00 00:00:00 Only Unassigned, RISHABH 350.1.13.10 ity of [place] [facility] 4.2.7.2.686 Yoni as [id number] [address] 2022-08-12 2022-08-12 Outpatient R TONA [facility] [id number] Univers 14:45:00 15:34:12 RUPAL [place] of [facility] 2022-08-12 2022-08-12 Routine Risk, Fsf-Xmfgu-Fc/High [facility] 1. 2.840.114 [id number] Univers 14:45:00 15:34:12 Rupal Carbone PARADI OPERATOR 350.1.13.10 ity of Visit REGIONAL 4.2.7.2.686 Yoni as MATERNAL [id number] [facility] & CHILD [address] [place] [address] 2022-08-11 2022-08-11 AMALIA [place] 1.2.840.114 [id number] Univers 00:00:00 00:00:00 (Out) Rupal KEATING 350.1.13.10 it y of [facility] 4.2.7.2.686 Yoni as [id number] [address] 2022-08-10 2022-08-10 Outpatient R PAN[facility]ITO [facility] [facility] [id number] Univers 16:00:00 16:45:04 JAVED ity [facility] 2022-08-10 2022-08-10 Urgent Panchito [facility] 1.2.840.114 [id number] Univers 16:00:00 16:20:00 Care Unknown, [facility] HEALTH 350.1.13.10 ity of [place] 4.2.7.2.686 Yoni as THOMAS?BLEA [phone] [address] MEDICAL OFFICE [facility] 2022-08-10 2022-08-10 Telephone [facility] 1.2.840.114 [id number] Univers 00:00:00 00:00:00 Cristiane C PARADI OPERATOR 350.1.13.[address] [facility] 4.2.7.2.686 Yoni as MATERNAL [phone] Med ical & CHILD [address] [place] [address] 2022-08-10 2022-08-10 [facility] 1.2.840.114 [id number] Univers 00:00:00 00:00:00 (Out) [facility] 350.1.13.10 it y of [place] 4.2.7.2.686 Yoni as THOMAS?BLEA [id number] [address] MEDICAL OFFICE [facility] 2022-07-27 2022-07-27 Outpatient R [facility] [id number] Univers 09:00:00 10:17:11 CRISTIANE montenegro o f [facility] 2022-07-27 2022-07-27 Routine [facility] 1.2.221.563 [id number] Univers 09:00:00 10:17:11 Cristiane C PARADI OPERATOR 350.1.13.[address] [facility] 4.2.7.2.686 Yoni as MATERNAL [id number] Med ical & CHILD 107 [facility] 2022-07-27 2022-07-27 Orders Doctor AMALIA 1.2.840.114 [id number] Univers 00:00:00 00:00:00 Only Unassigned, RISHABH 350.1.13.10 ity of [place] [facility] 4.2.7.2.686 Yoni as [id number] [address] 2022-07-20 2022-07-20 Case [facility] 1.2.840.114 [id number] Univers 00:00:00 00:00:00 Management Keli Finley PARADI OPERATOR 350.1.13.[address] [facility] 4.2.7.2.686 Yoni as MATERNAL [id number] [facility] & CHILD [address] [place] [address] 2022-07-14 2022-07-14 Outpatient R [facility] [id number] Univers 15:45:00 16:49:29 CRISTIANE agarwaly o f [facility] 2022-07-14 2022-07-14 Routine [facility], [facility] 1.2.324.627 [id number] Univers 15:45:00 16:49:29 Cristiane Loera PARADI OPERATOR 350.1.13.10 ity of Visit REGIONAL 4.2.7.2.686 Yoni as MATERNAL [phone] [facility] & CHILD [address] [place] [address] 2022-07-14 2022-07-14 Drug Safety Associate [facility] 1.2 .840.114 [id number] Univers 15:00:00 15:30:00 Visit Yusuf Guy PARADI OPERATOR 350.1.13.10 ity of REGIONAL 4.2.7.2.686 Yoni as MATERNAL [id number] [facility] ical & CHILD 369 [facility] 2022-07-13 2022-07-13 Case [facility] 1.2.840.114 [id number] Univers 00:00:00 00:00:00 Management Keli Finley PARADI OPERATOR 350.1.13.10 ity of REGIONAL 4.2.7.2.686 Yoni as MATERNAL [id number] Med ical & CHILD [address] [place] [address] 2022-07-13 2022-07-13 Telephone Marni [facility] 1.2.840.114 [id number] Univers 00:00:00 00:00:00 Keli Finley PARADI OPERATOR 350.1.13.10 i ty of REGIONAL 4.2.7.2.686 Yoni as MATERNAL [id number] [facility] & [address] 2022-07-12 2022-07-12 Drug Safety Associate Lab, [place] [facility] 1.2.840. 114 [id number] [facility] 08:15:00 08:55:21 Visit Cristiane Hendrickson PARADI OPERATOR 350.1.13. [address] [facility] 4.2.7.2.686 Yoni as MATERNAL [id number] [address] 2022-07-12 2022-07-12 Outpatient R MADHAVI [facility] [id number] Univers 08:15:00 08:15:00 CRISTIANE montenegro o f [facility] 2022-07-09 2022-07-09 Telephone [facility] 1.2.840.114 [id number] Univers 00:00:00 00:00:00 Cristiane Loera PARADI OPERATOR 350.1.13.[address] [facility] 4.2.7.2.686 Yoni as MATERNAL [id number] [address] 2022-06-30 2022-06-30 Case Marni [facility] 1.2.840.114 [id number] Univers 00:00:00 00:00:00 Management Keli Finley PARADI OPERATOR 350.1.13.[address] [facility] 4.2.7.2.686 Yoni as MATERNAL [id number] [address] 2022-06-29 2022-06-29 Outpatient R MARNI [facility] [id number] Univers 10:30:00 11:23:20 KELI montenegro [facility] 2022-06-29 2022-06-29 Routine Provider, Trino [facility] 1 .2.840.114 [id number] Univers 10:30:00 11:23:20 KatarinaNisha veloznda Malia PARADI OPERATOR 350.1.13. 10 ity of Visit REGIONAL 4.2.7.2.686 Yoni as MATERNAL [id number] [facility] & CHILD [address] [place] [address] 2022-06-23 2022-06-23 Outpatient R MARNI [facility] [id number] Univers 15:30:00 15:30:00 KELI [facility] 2022-05-28 2022-05-28 Abstract [facility] 1.2.840.114 [id number] Univers 00:00:00 00:00:00 Cristiane C PARADI OPERATOR 350.1.13.10 ity of REGIONAL 4.2.7.2.686 Yoni as MATERNAL [id number] [address] 2022-05-26 2022-05-26 Routine [facility] 1.2.152.355 [id number] Univers 15:30:00 15:45:00 Cristiane C PARADI OPERATOR 350.1.13.10 ity of Visit REGIONAL 4.2.7.2.686 Yoni as MATERNAL [phone] [facility] & [address] 2022-05-26 2022-05-26 Drug Safety Associate Ultrasound, [facility] 1.2 .840.114 [id number] Univers 14:00:00 15:15:00 Visit Dorothy Arroyo PARADI OPERATOR 350.1.13.10 ity of REGIONAL 4.2.7.2.686 Yoni as MATERNAL [id number] [facility] & CHILD [address] [place] [address] 2022-05-26 2022-05-26 Outpatient P DOROTHY ARROYO [facility] [id number] Univers 14:00:00 15:05:37 DOROTHY ARROYO [facility] 2022-05-12 2022-05-12 Outpatient R MADHAVI [facility] [id number] Univers 16:00:00 16:00:00 CRISTIANE montenegro o f [facility] 2022-05-11 2022-05-11 Outpatient R AKINSIPE, [facility] [id number] Univers 15:30:00 15:30:00 CRISTIANE ity o f [facility] 2022-04-13 2022-04-13 Outpatient R AKINSIPE, [facility] [id number] Univers 15:30:00 16:24:09 CRISTIANE ity o f [facility] 2022-04-13 2022-04-13 Routine Akinsipe, [facility] 1.2.009.184 [id number] Univers 15:30:00 16:24:09 Cristiane C PARADI OPERATOR 350.1.13.10 ity of Visit REGIONAL 4.2.7.2.686 Yoni as MATERNAL [id number] [facility] & CHILD [address] [place] [address] 2022-04-08 2022-04-08 Outpatient P [facility] [id number] Univers 11:15:00 11:15:00 ity of [facility] 2022-03-19 2022-03-19 Telephone [facility] 1.2.840.114 [id number] Univers 00:00:00 00:00:00 Cristiane C PARADI OPERATOR 350.1.13.10 ity of REGIONAL 4.2.7.2.686 Yoni as MATERNAL [id number] [facility] & [address] 2022-03-18 2022-03-18 Outpatient R AKINSIPE, [facility] [id number] Univers 10:30:00 10:30:00 CRISTIANE ity o [facility] 2022-03-18 2022-03-18 Outpatient R AKINSIPE, [facility] [id number] Univers 10:30:00 10:30:00 CRISTIANE ity o [facility] 2022-03-16 2022-03-16 Outpatient O AKINSIPE, [facility] [id number] Univers 15:30:00 16:17:22 CRISTIANE ity o [facility] 2022-03-16 2022-03-16 Routine Akinsipe, [facility] 1.2.749.459 [id number] Univers 15:30:00 16:17:22 Cristiane C PARADI OPERATOR 350.1.13.10 ity of Visit REGIONAL 4.2.7.2.686 Yoni as MATERNAL [id number] [facility] & CHILD [address] [place] [address] 2022-03-12 2022-03-12 Telephone Madhavi [facility] 1.2.840.114 [id number] Univers 00:00:00 00:00:00 Cristiane C PARADI OPERATOR 350.1.13.10 ity of REGIONAL 4.2.7.2.686 Yoni as MATERNAL [id number] [facility] & CHILD [address] [place] [address] 2022-02-26 2022-02-26 Outpatient R MADHAVI [facility] [id number] Univers 13:30:00 13:50:04 CRISTIANE montenegro o [facility] 2022-02-26 2022-02-26 Drug Safety Associate Lab, [facility] 1.2.840. 114 [id number] [facility] 13:30:00 13:50:04 Visit Cristiane Hendrickson PARADI OPERATOR 350.1.13. 10 ity of REGIONAL 4.2.7.2.686 Yoni as MATERNAL [id number] [facility] & CHILD [address] [place] [address] 2022-02-25 2022-02-25 Outpatient R MADHAVI [facility] [id number] Univers 10:30:00 10:30:00 CRISTIANE montenegro o [facility] 2022-02-18 2022-02-18 Initial [facility] 1.2.592.659 [id number] Univers 15:00:00 16:27:05 Cristiane C PARADI OPERATOR 350.1.13.10 ity of Visit REGIONAL 4.2.7.2.686 Yoni as MATERNAL [id number] [facility] & CHILD [address] [place] [address] 2022-02-18 2022-02-18 Outpatient R MADHAVI [facility] [id number] Univers 15:00:00 16:27:05 CRISTIANE montenegro o [facility] 2022-02-18 2022-02-18 Outpatient R MADHAVI [facility] [id number] Univers 14:30:00 15:35:33 CRISTIANE montenegro o [facility] 2022-02-18 2022-02-18 Orders Doctor AMALIA 1.2.840.114 [id number] Univers 00:00:00 00:00:00 Only Unassigned, RISHABH 350.1.13.10 ity of [place] [facility] 4.2.7.2.686 Yoni as [id number] [facility] [address] 2022-02-17 2022-02-17 Outpatient R AKINVELIA, [facility] [id number] [facility] 10:00:00 10:00:00 CRISTIANE newby [facility] 2022-02-07 2022-02-07 Nurse AMALIA Freedman 1.2.840.114 [id number] Univers 00:00:00 00:00:00 Triage Aneatrice RISHABH 350.1.13.10 ity of [facility] 4.2.7.2.686 Yoni as [id number] [address] Results Test Description Test Time Test Comments Results Result Comments Source POCT URINALYSIS W SPECIFIC GRAVITY 2022-09-23 21:00:00 Test Item Value Reference Range Interpretation Comme nts POCT U SP GRAV (test code = 3255) * 1.005-1.025 POCT PH U (test code = 3254) 6 mg/dl 5-8 POCT U LEUK EST (test code = 3263) negative Negative - Negative POCT U NIT (test code = 3262) negative Negative - Negative POCT U PROT (test code = 3259) trace Negative - Negative POCT U GLU (test code = 3256) 250 Negative - Negative POCT U KETONE (test code = 3258) negative Negative - Negative POCT U UROBILI (test code = 3260) * 0.2-1 POCT U BILI (test code = 3261) * Negative - Negative POCT U BLD (test code = 3257) negative Negative - Negative POCT U COLOR (test code = 3266) POCT U APPEAR (test code = 3267) [facility] [id number] 21:00:00 Test Item Value Reference Range Interpretation Comments POCT U SP GRAV (test code = * 1.005-1.025 3255) POCT PH U (test code = 3254) 6 mg/dl 5-8 POCT U LEUK EST (test code = negative Negative - Negative 3263) POCT U NIT (test code = 3262) negative Negative - Negative POCT U PROT (test code = 3259) trace Negative - Negative POCT U GLU (test code = 3256) 250 Negative - Negative POCT U KETONE (test code = 3258) negative Negative - Negative POCT U UROBILI (test code = * 0.2-1 3260) POCT U BILI (test code = 3261) * Negative - Negative POCT U BLD (test code = 3257) negative Negative - Negative POCT U COLOR (test code = 3266) POCT U APPEAR (test code = 3267) [facility] GLUCOSE (AUTOMATED)2022-09-21 21:59:03 Test Item Value Reference Range Interpretation Comments POCT GLU (test code = 4465168171) 112 mg/dL 70-110 H Lab Interpretation (test code = Abnormal 87987-1) [facility] URINALYSIS W SPECIFIC [id number] 20:54:00 Test Item Value Reference Range Interpretation Comments POCT U SP GRAV (test code = 3255) . 1.005-1.025 POCT PH U (test code = 3254) 6 mg/dl 5-8 POCT U LEUK EST (test code = Trace Negative - Negative 3263) POCT U NIT (test code = 3262) Neg Negative - Negative POCT U PROT (test code = 3259) Trace Negative - Negative POCT U GLU (test code = 3256) Neg Negative - Negative POCT U KETONE (test code = 3258) Small Negative - Negative POCT U UROBILI (test code = 3260) . 0.2-1 POCT U BILI (test code = 3261) . Negative - Negative POCT U BLD (test code = 3257) Trace Negative - Negative POCT U COLOR (test code = 3266) . POCT U APPEAR (test code = 3267) .. [facility] URINALYSIS W SPECIFIC [id number] 20:48:00 Test Item Value Reference Range Interpretation Comments [...] POCT U GLU (test code = 3256) neg Negative - Negative POCT U KETONE (test code = 3258) . Negative - Negative POCT U UROBILI (test code = 3260) . 0.2-1 POCT U BILI (test code = 3261) . Negative - Negative POCT U BLD (test code = 3257) . Negative - Negative POCT U COLOR (test code = 3266) . POCT U APPEAR (test code = 3267) . [facility] URINALYSIS W SPECIFIC [id number] 20:48:00 Test Item Value Reference Range Interpretation Comments [...] POCT U GLU (test code = 3256) neg Negative - Negative POCT U KETONE (test code = 3258) . Negative - Negative POCT U UROBILI (test code = 3260) . 0.2-1 POCT U BILI (test code = 3261) . Negative - Negative POCT U BLD (test code = 3257) . Negative - Negative POCT U COLOR (test code = 3266) . POCT U APPEAR (test code = 3267) . [facility] URINALYSIS W SPECIFIC [id number] 22:08:00 Test Item Value Reference Range Interpretation Comments [...] POCT U GLU (test code = 3256) 50 Negative - Negative POCT U KETONE (test code = 3258) . Negative - Negative POCT U UROBILI (test code = 3260) . 0.2-1 POCT U BILI (test code = 3261) . Negative - Negative POCT U BLD (test code = 3257) . Negative - Negative POCT U COLOR (test code = 3266) . POCT U APPEAR (test code = 3267) . [facility] URINALYSIS W SPECIFIC [id number] 22:08:00 Test Item Value Reference Range Interpretation Comments [...] POCT U GLU (test code = 3256) 50 Negative - Negative POCT U KETONE (test code = 3258) . Negative - Negative POCT U UROBILI (test code = 3260) . 0.2-1 POCT U BILI (test code = 3261) . Negative - Negative POCT U BLD (test code = 3257) . Negative - Negative POCT U COLOR (test code = 3266) . POCT U APPEAR (test code = 3267) . [facility] URINALYSIS W SPECIFIC [id number] 22:08:00 Test Item Value Reference Range Interpretation Comments [...] POCT U GLU (test code = 3256) 50 Negative - Negative POCT U KETONE (test code = 3258) . Negative - Negative POCT U UROBILI (test code = 3260) . 0.2-1 POCT U BILI (test code = 3261) . Negative - Negative POCT U BLD (test code = 3257) . Negative - Negative POCT U COLOR (test code = 3266) . POCT U APPEAR (test code = 3267) . [facility] URINALYSIS W SPECIFIC [id number] 22:08:00 Test Item Value Reference Range Interpretation Comments [...] POCT U GLU (test code = 3256) 50 Negative - Negative POCT U KETONE (test code = 3258) . Negative - Negative POCT U UROBILI (test code = 3260) . 0.2-1 POCT U BILI (test code = 3261) . Negative - Negative POCT U BLD (test code = 3257) . Negative - Negative POCT U COLOR (test code = 3266) . POCT U APPEAR (test code = 3267) . [facility] URINALYSIS W SPECIFIC [id number] 21:30:00 Test Item Value Reference Range Interpretation Comments POCT U SP GRAV (test code = . 1.005-1.025 3255) POCT PH U (test code = 3254) 7 mg/dl 5-8 POCT U LEUK EST (test code = trace Negative - Negative 3263) POCT U NIT (test code = 3262) negative Negative - Negative POCT U PROT (test code = 3259) trace Negative - Negative POCT U GLU (test code = 3256) 250 Negative - Negative POCT U KETONE (test code = 3258) small Negative - Negative POCT U UROBILI (test code = . 0.2-1 3260) POCT U BILI (test code = 3261) . Negative - Negative POCT U BLD (test code = 3257) negative Negative - Negative POCT U COLOR (test code = 3266) . POCT U APPEAR (test code = 3267) . [facility] GLUCOSE (AUTOMATED)2022-08-31 17:52:32 Test Item Value Reference Range Interpretation Comments POCT GLU (test code = 3987892977) 164 mg/dL 70-110 H Lab Interpretation (test code = Abnormal 14818-2) [facility] GLUCOSE(AGE >30DAYS)2022-08-31 17:50:00 Test Item Value Reference Range Interpretation Comments POCT Glu (age>30days) (test code = 164 mg/dL 70-110 A 3342) Lab Interpretation (test code = Abnormal 01468-4) [facility] URINALYSIS W SPECIFIC [id number] 17:27:00 Test Item Value Reference Range Interpretation Comments [...] POCT U GLU (test code = 3256) Trace Negative - Negative POCT U KETONE (test code = 3258) . Negative - Negative POCT U UROBILI (test code = 3260) . 0.2-1 POCT U BILI (test code = 3261) . Negative - Negative POCT U BLD (test code = 3257) . Negative - Negative POCT U COLOR (test code = 3266) . POCT U APPEAR (test code = 3267) . [facility] URINALYSIS W SPECIFIC [id number] 22:03:00 Test Item Value Reference Range Interpretation Comments [...] POCT U GLU (test code = 3256) Negative - Negative POCT U KETONE (test code = 3258) . Negative - Negative POCT U UROBILI (test code = 3260) . 0.2-1 POCT U BILI (test code = 3261) . Negative - Negative POCT U BLD (test code = 3257) . Negative - Negative POCT U COLOR (test code = 3266) . POCT U APPEAR (test code = 3267) . [facility] URINALYSIS W SPECIFIC [id number] 15:36:00 Test Item Value Reference Range Interpretation Comments [...] POCT U APPEAR (test code = 3267) [facility] URINALYSIS W SPECIFIC [id number] 22:13:00 Test Item Value Reference Range Interpretation [...] POCT U APPEAR (test code = 3267) [facility] [id number] 06:49:39 Test Item Value Reference Range Interpretation Comments GLUC 1 HR (test code = 4801147285) 185 mg/dL 120-170 H Lab Interpretation (test code = Abnormal 35605-3) [facility] with [id number] 06:36:41 Test Item Value Reference Range Interpretation Comments WBC (test code = See_Comment H [Automated 6690-2) message] The sy stem which generated this [...] RDW-SD (test code = 40.5 fL 39.0-49.9 92616-7) RDW-CV (test code = 13.7 % 12.0-15.5 788-0) PLT (test code = See_Comment [Automated 777-3) message] The sy stem which generated this result transmitted reference range : 166 - 358 10*3/ ?L. The reference r armando was not used to interpret this result as normal/abnormal . MPV (test code = 11.5 fL 9.5-12.9 45030-1) NRBC/100 WBC (test See_Comment [Automat ed code = 4405255692) message] The system which generated this result transmitted reference range : 0.0 - 10.0 /100 WBCs. The refer ence range was not u sed to interpret th is result as normal/abnormal . NRBC x10^3 (test code See_Comment [Auto mated = 6409871006) message] The s ystem which generated this result transmitted reference range : 10*3/?L. The reference range was not used to interpret this result as normal/abnormal . GRAN MAT (NEUT) % 79.6 % (test code = 770-8) IMM GRAN % (test code 0.40 % = 7833613440) LYMPH % (test code = 16.4 % 736-9) MONO % (test code = 3.0 % 5905-5) EOS % (test code = 0.3 % 713-8) BASO % (test code = 0.3 % 706-2) GRAN MAT x10^3(ANC) 9.23 10*3/uL 1.88-7.09 H (test code = 2378016212) IMM GRAN x10^3 (test 0.05 10*3/uL 0.00-0.06 code = 0600117068) LYMPH x10^3 (test code 1.90 10*3/uL 1.32-3.29 = 731-0) MONO x10^3 (test code 0.35 10*3/uL 0.33-0.92 = 742-7) EOS x10^3 (test code = 0.04 10*3/uL 0.03-0.39 711-2) BASO x10^3 (test code 0.03 10*3/uL 0.01-0.07 = 704-7) Lab Interpretation Abnormal (test code = 14076-7) [facility] URINALYSIS W SPECIFIC [id number] 16:56:00 Test Item Value Reference Range Interpretation [...] U APPEAR (test code = 3267) clear [facility] URINALYSIS W SPECIFIC [id number] 16:56:00 Test Item Value Reference Range Interpretation [...] U APPEAR (test code = 3267) clear [facility] URINALYSIS W SPECIFIC [id number] 20:36:00 Test Item Value Reference Range Interpretation [...] POCT U APPEAR (test code = 3267) [facility] URINALYSIS W SPECIFIC [id number] 20:55:00 Test Item Value Reference Range Interpretation [...] POCT U APPEAR (test code = 3267) [facility]
--- NOTE | 2022-09-25 02:07 | ER ---
Nurse's Notes [facility] Name: Sugey Morrissey Age: 26 yrs Sex: Female : 1995 Arrival Date: 09/25/2022 Time: 01:30 Bed 1 Private MD: Diagnosis: Uterine contractions at 38 weeks gestation of Presentation: 09/25 01:39 Chief complaint: Patient states: "I am having contractions that started around 1245. I tw5 have been feeling them every 5-10 min.". Coronavirus screen: Vaccine status: Patient reports being unvaccinated. Ebola Screen: Patient negative for fever greater than or equal to 101.5 degrees Fahrenheit, and additional compatible Ebola Virus Disease symptoms Patient denies exposure to infectious person. Patient denies travel to an Ebola-affected area in the 21 days before illness onset. Initial Sepsis Screen: Does the patient meet any 2 criteria? No. Patient's initial sepsis screen is negative. Does the patient have a suspected source of infection? No. Patient's initial sepsis screen is negative. Risk Assessment: Do you want to hurt yourself or someone else? Patient reports no desire to harm self or others. Onset of symptoms was September 25, 2022 at 00:45. 01:39 Method Of Arrival: Wheelchair tw5 01:39 Acuity: TOYIN 3 tw5 Triage Assessment: 01:42 General: Appears in no apparent distress. Behavior is calm, cooperative, appropriate tw5 for age. Pain: Pain currently is 0 out of 10 on a pain scale. 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 - Social history:: Smoking status: Patient denies any tobacco usage or history of. Screenin:44 Abuse screen: Denies threats or abuse. Denies injuries from another. tw5 01:44 [facility] ED Fall Risk Assessment (Adult) History of falling in the last 3 months, tw5 including since admission No falls in past 3 months (0 pts). Nutritional screening: No deficits noted. Tuberculosis screening: No symptoms or risk factors identified. Assessment: 01:45 General: Reports "They were going to induce me on the .". Neuro: Level of tw5 Consciousness is awake, alert, obeys commands, Oriented to person, place, time, situation. Vital Signs: 01:39 BP 144 / 78; Pulse 79; Resp 18; Temp 98.6; Pulse Ox 99% on R/A; Weight 121.11 kg; tw5 Height 5 ft. 5 in. (165.10 cm); Pain 0/10; 01:39 Body Mass Index 44.43 (121.11 kg, 165.10 cm) tw5 Vitals: 01:44 Heart Tones 135. tw5 ED Course: 01:30 Patient arrived in ED. jj6 01:37 Tatiana Block is Primary Nurse. tw 01:40 Flavia Stark MD is Attending Physician. sd2 01:42 Triage completed. 5 01:42 Arm band placed on. 01:56 Patient has correct armband on for positive identification. Placed in gown. Bed in low tw5 position. Call light in reach. Side rails up X 1. Pulse ox on. NIBP on. Door closed. Noise minimized. Visitors limited. Lights dimmed. Warm blanket given. Verbal reassurance given. 01:56 Inserted saline lock: 20 gauge in right hand, using aseptic technique. tw 01:56 Assist provider with pelvic exam: Performed by Flavia Stark MD Patient tolerated tw5 well. 02:20 Patient transferred, IV remains in place. tw5 Administered Medications: No medications were administered Medication: 01:44 VIS not applicable for this client. Outcome: 02:06 ER care complete, transfer ordered by . sd2 02:19 Transferred Note: [facility] tw5 02:19 Condition: stable 02:19 Instructed on the need for transfer. 02:20 Patient left the ED. 5 Signatures: Tatiana Block tw5 Regine Ruvalcaba jj6 Flavia Stark MD MD sd2
--- NOTE | 2022-09-25 02:07 | EDPHYS ---
Physician Documentation [facility] Name: Sugey Morrissey Age: 26 yrs Sex: Female : 1995 Arrival Date: 09/25/2022 Time: 01:30 Bed 1 Private MD: ED Physician Flavia Stark HPI: 09/25 01:46 This 26 yrs old Female presents to ER via Wheelchair with complaints of Est 38 sd2 wks gestation, contractions began 12:25 AM, approx 5 min apart. 01:46 26 yo at 38 weeks gestation presents with CC of contractions. Reports contractions sd2 began at 1225 and have been approximately 5-10 minutes apart. Reports gestational DM and is non-compliant with Metformin. No other issues thus far with the per patient. . [employer]ENT [employer]IC: 01:42 Verified Historical: - Allergies: 01:42 No Known Allergies; - Home Meds: 01:42 vitamins [Active]; - PMHx: :42 None; - PSHx: 01:42 None; - Immunization history:: Flu vaccine is not up to date. - Social history:: Smoking status: Patient denies any tobacco usage or history of. ROS: 01:46 Constitutional: Negative for fever, chills, and weight loss, Eyes: Negative for injury, sd2 pain, redness, and discharge, Cardiovascular: Negative for chest pain, palpitations, and edema, Respiratory: Negative for shortness of breath, cough, wheezing. Abdomen/GI: Positive for abdominal contractions, negative for nausea, vomiting, diarrhea. MS/Extremity: Negative for injury and deformity, Skin: Negative for injury, rash, and discoloration, Neuro: Negative for headache, numbness and tingling. Exam: 01:46 Constitutional: This is a well developed, well nourished patient who is awake, alert, sd2 and in no acute distress. Head/Face: Normocephalic, atraumatic. Eyes: EOMI, normal conjunctiva bilaterally Chest/axilla: Normal chest wall appearance and motion. Nontender with no deformity. Cardiovascular: Regular rate and rhythm with a normal S1 and S2. No gallops, murmurs, or rubs. 2+ distal pulses. Respiratory: Lungs have equal breath sounds bilaterally, clear to auscultation and percussion. No rales, rhonchi or wheezes noted. No increased work of breathing, no retractions or nasal flaring. Abdomen/GI: Soft, non-tender, with normal bowel sounds. No guarding or rebound. No evidence of tenderness throughout.Gravid abdomen. No uterine tenderness. Skin: Warm, dry with normal turgor. Normal color with no rashes, no lesions, and no evidence of cellulitis. MS/ Extremity: Pulses equal, no cyanosis. Neurovascular intact. Full, normal range of motion. Ambulatory without difficulty. Psych: Awake, alert, with orientation to person, place and time. Behavior, mood, and affect are within normal limits. Vital Signs: 01:39 BP 144 / 78; Pulse 79; Resp 18; Temp 98.6; Pulse Ox 99% on R/A; Weight 121.11 kg; tw5 Height 5 ft. 5 in. (165.10 cm); Pain 0/10; 01:39 Body Mass Index 44.43 (121.11 kg, 165.10 cm) tw5 MDM: 01:41 Patient medically screened. sd2 01:46 Differential Diagnosis active labor, labor, Livingston Rodriguez among tohers. Data sd2 reviewed: vital signs, nurses notes. Consideration of Admission/Observation. Test considered but Not performed: Labs: Would delay care. Ultrasound Would delay plan of care for transfer. Care significantly affected by the following chronic conditions: Diabetes. ED course: Based upon patient's pelvic exam at this time, she is not in imminent labor or at significant chance of delivering. Therefore, I believe she is safe for transfer at this time. This was discussed with the patient as well and she is comfortable with plan for transfer to [facility] who has accepted her at this time.. Administered Medications: No medications were administered Disposition Summary: 09/25/22 02:06 Transfer Ordered Transfer Location: [facility] sd2 Reason: Higher level of care sd2 Condition: Stable sd2 Problem: new sd2 Symptoms: are unchanged sd2 Accepting Physician: Dr. Randolph(09/25/22 02:20) tw5 Diagnosis - Uterine contractions at 38 weeks gestation of sd2 Forms: - Medication Reconciliation Form sd2 - SBAR form sd2 Signatures: Tatiana Block tw5 Flavia Stark MD MD sd2 Corrections: (The following items were deleted from the chart) 02:20 02:06 Dr. Randolph sd2 tw5
[2022-09-25 03:12] VITALS: BP 144/78; TEMP 98.6; O2SAT 99
== END 2022-09-25 02:20 | disposition short-term general hospital (02) ==
LOC: ER 01:28
DX: O47.1 False labor at or after 37 completed weeks of gestation (principal); Z3A.38 38 weeks gestation of pregnancy
CPT/HCPCS: 99285